=== PATIENT | female | born 1945 | race Caucasian/White ===

== ENCOUNTER 2016-05-22 12:47 | Emergency (ER) | payer MEDICARE ==
[2016-05-22] MEDS ORDERED: DEXAMETHASONE 10 MG/ML VIAL PO STA (15:33)
[2016-05-22] MEDS ORDERED: ONDANSETRON ODT 4 MG TABLET TL STA (15:33)
[2016-05-22] MEDS ORDERED: ALBUTEROL NEB 2.5 MG/3 ML INH STA (15:33)
[2016-05-22] MEDS ORDERED: ACETAMINOPHEN 325 MG TABLET PO STA (15:33)
[2016-05-22] MEDS ORDERED: ACETAMINOPHEN 325 MG TABLET PO ONE (15:50)
[2016-05-22] MEDS ORDERED: ONDANSETRON ODT 4 MG TABLET ONE (15:50)
[2016-05-22] MEDS ORDERED: DEXAMETHASONE 10 MG/ML VIAL ONE (15:50)
[2016-05-22] MEDS ORDERED: ALBUTEROL NEB 2.5 MG/3 ML INH ONE (16:02)
== END 2016-05-22 16:58 | disposition home or self-care (01) ==
DX: J10.1 Influenza due to other identified influenza virus with other respiratory manifestations (principal); J45.909 Unspecified asthma, uncomplicated; I10 Essential (primary) hypertension
CPT/HCPCS: 87275; 87276; 94640; 99282; 99283; A9270; J7613; Q0162

== ENCOUNTER 2016-05-29 11:14 | Outpatient (CLI) | payer MEDICARE | END 2016-05-29 11:15 | disposition home or self-care (01) | DX: R05 Cough (principal) ==

== ENCOUNTER 2017-01-13 19:57 | Outpatient (CLI) | payer MEDICARE | END 2017-01-13 19:58 | disposition home or self-care (01) | LOC: LAB.R 19:57 | PROVIDERS: ATTEND Family Medicine | DX: N39.0 Urinary tract infection, site not specified (principal) | CPT/HCPCS: 87086 ==

== ENCOUNTER 2017-06-12 12:24 | Emergency (ER) | payer MEDICARE ==
[2017-06-12 12:31] VITALS: BP 139/68
--- NOTE | 2017-06-12 12:53 | ED Physician Documentation ---
PD HPI URI - Stated complaint Stated Complaint: THROAT PX/RASH/FEVER - Chief complaint Chief Complaint: Heent - History obtained from History obtained from: Patient - History of Present Illness Timing - onset: How many days ago (4) Timing duration: Days (4) Timing details: Gradual onset, Still present Associated symptoms: Chills, Sore throat, Other (started with diffuse rash last night and worse today). No: Ear pain, Nasal congestion, Dry cough, Chest pain, NVD Contributing factors: No: Sick contact, Travel, Immunocompromised Improves by: No: Medication Worsened by: Other (swallowing) Similar symptoms before: Has not had sx before Recently seen: Not recently seen Review of Systems Constitutional: reports: Fever (subjective), Chills, Myalgias Ears: denies: Ear pain Nose: denies: Rhinorrhea / runny nose, Congestion Throat: reports: Sore throat. 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 - Present Medications Home Medications: Ambulatory Orders Medication Instructions Recorded Confirmed Atenolol 25 mg PO DAILY 04/29/14 04/29/14 Saccharomyces Boulardii [Florastor] 500 mg PO BIDWM #30 capsule 04/29/14 metroNIDAZOLE [Flagyl] 500 mg PO BID 28 Days tablet 04/29/14 Albuterol Sulfate [Proair Hfa 2 puffs IH QID #1 hfa.aer.ad 05/22/16 Inhaler] Dexamethasone [Decadron] 4 mg PO DAILY #5 tablet 05/22/16 Ondansetron Odt [Zofran] 4 mg TL Q6H PRN #15 tablet 05/22/16 guaiFENesin/CODEINE [Robitussin AC] 10 ml PO Q6H PRN #240 ml 05/22/16 Cephalexin [Keflex] 500 mg PO QID #24 capsule 06/12/17 Dexamethasone [Decadron] 4 mg PO DAILY #5 tablet 06/12/17 Saccharomyces Boulardii [Florastor] 250 mg PO BID #14 capsule 06/12/17 - Allergies Allergies/Adverse Reactions: Allergies Allergy/AdvReac Type Severity Reaction Status Date / Time Penicillins Allergy Unknown Verified 06/12/17 12:31 - Social History Does the pt smoke?: No Smoking Status: Never smoker Does the pt drink ETOH?: Yes Does the pt have substance abuse?: No - Immunizations Immunizations are current?: Yes - POLST Patient has POLST: No PD ED PE NORMAL - Vitals Vital signs reviewed: Yes - General General: Alert and oriented X 3, No acute distress, Well developed/nourished, Other (she does not appear ill/septic. ) - HEENT HEENT: Ears normal, Moist mucous membranes. No: Pharynx benign (redness with some spotty exudates posteriorly, anterior adenopathy noted. ) - Neck Neck: Supple, no meningeal sign - Cardiac Cardiac: RRR, No murmur - Respiratory Respiratory: Clear bilaterally - Abdomen Abdomen: Soft, Non tender - Back Back: No CVA TTP - Derm Derm: Normal color, Warm and dry, Other (diffuse maculopapular rash, mostly on trunk, not on palms. No oral ulcerations per se. No petechiae nor purpura. ) - Extremities Extremities: No tenderness to palpate, Normal ROM s pain - Neuro Neuro: Alert and oriented X 3, No motor deficit, Normal speech Results - Vitals Vitals: Oxygen O2 Source Room air - Labs Labs: Laboratory Tests 06/12/17 13:35 Group A Strep Rapid Negative PD MEDICAL DECISION MAKING - ED course Complexity details: considered differential (throat exam and concurrent rash suspicious for strep, though viral causes as well. Will empirically treat pending culture with high clinical suspicion. ), d/w patient Departure - Departure Disposition: 01 Home, Self Care Clinical Impression: Maculopapular rash, generalized Pharyngitis Qualifiers: Pharyngitis/tonsillitis etiology: unspecified etiology Qualified Code(s): J02.9 - Acute pharyngitis, unspecified Condition: Stable Record reviewed to determine appropriate education?: Yes Instructions: ED Strep Pharyngitis Poss Follow-Up: Eulalia Vazquez ARNP [Primary Care Provider] - Prescriptions: Cephalexin [Keflex] 500 mg PO QID #24 capsule Dexamethasone [Decadron] 4 mg PO DAILY #5 tablet Saccharomyces Boulardii [Florastor] 250 mg PO BID #14 capsule Comments: Drink lots of fluids. Cephalexin as directed for likely bacterial pharyngitis. The culture result is still pending but we will treated empirically. The rashes come in concurrence with both viral and strep infections. It does not look like a dangerous rash. Use Tylenol or ibuprofen if needed for fevers or pains. Decadron daily for 5 more days as a steroid to decrease the inflammation and decrease the rash as well. Recheck if not improving over the next few days. Discharge Date/Time: 06/12/17 13:57
[2017-06-12] MEDS ORDERED: cephALEXin 250 MG CAPSULE PO STA (13:36)
[2017-06-12] MEDS ORDERED: DEXAMETHASONE 10 MG/ML VIAL PO STA (13:36)
== END 2017-06-12 13:57 | disposition home or self-care (01) ==
LOC: ED 12:24
DX: R92.1 Mammographic calcification found on diagnostic imaging of breast (principal); J02.9 Acute pharyngitis, unspecified; I10 Essential (primary) hypertension
CPT/HCPCS: 87070; 87430; 99283; A9270

== ENCOUNTER 2017-11-25 16:34 | Outpatient (CLI) | payer MEDICARE ==
[2017-11-25 15:29] LABS: BILIRUBIN,URINE NEGATIVE (NEGATIVE); GLUCOSE, URINE (UA) NEGATIVE (NEGATIVE); KETONES,URINE (UA) NEGATIVE (NEGATIVE); LEUKOCYTE ESTERASE, URINE NEGATIVE (NEGATIVE); NITRITE,URINE NEGATIVE (NEGATIVE); OCCULT BLOOD,URINE NEGATIVE (NEGATIVE); PROTEIN,URINE NEGATIVE (NEGATIVE); UROBILINOGEN,URINE 0.2 (NORMAL) E.U./dL (NORMAL)
[2017-11-25 15:31] LABS: CLARITY,URINE CLEAR (CLEAR)
[2017-11-25 16:09] LABS: BACTERIA,URINE None Seen /HPF (None Seen); CRYSTALS,URINE 3-5 Calcium Oxalate /LPF; RBC,URINE None Seen /HPF (0-5); SQUAMOUS EPITHELIAL CELL,UR RARE Squamous (<= Few)
== END 2017-11-25 23:59 ==
LOC: LAB.R 16:34
PROVIDERS: ATTEND Nurse Practitioner Family
DX: N39.0 Urinary tract infection, site not specified (principal)
CPT/HCPCS: 81001; 87086

== ENCOUNTER 2017-12-04 10:37 | Outpatient (CLI) | payer MEDICARE ==
[2017-12-04 18:09] LABS: BASOPHILS # (AUTO) 0.1 10^3/uL (0.0-0.1); BASOPHILS % (AUTO) 0.9 %; EOSINOPHILS # (AUTO) 0.2 10^3/uL (0.0-0.7); EOSINOPHILS % (AUTO) 3.6 %; HGB - HEMOGLOBIN 13.8 g/dL (12.0-16.0); LYMPHOCYTES # (AUTO) 1.6 10^3/uL (1.5-3.5); LYMPHOCYTES % (AUTO) 28.3 %; MEAN CORPUSCULAR HEMOGLOBIN 30.1 pg (27.0-31.0); MEAN CORPUSCULAR HGB CONC 33.6 g/dL (32.0-36.0); MEAN CORPUSCULAR VOLUME 89.5 fL (81.0-99.0); MEAN PLATELET VOLUME 8.8 fL (7.9-10.8); MONOCYTES # (AUTO) 0.4 10^3/uL (0.0-1.0); NEUTROPHILS # (AUTO) 3.3 10^3/uL (1.5-6.6); NEUTROPHILS % (AUTO) 59.2 %; PLT - PLATELET COUNT 238 10^3/uL (130-450); RED CELL DISTRIBUTION WIDTH 13.6 % (12.0-15.0); WHITE BLOOD COUNT 5.6 x10^3/uL (4.8-10.8)
[2017-12-04 20:03] LABS: ALBUMIN 3.9 g/dL (3.2-5.5); ALBUMIN/GLOBULIN RATIO 1.3 (1.0-2.2); ALKALINE PHOSPHATASE 54 IU/L (42-121); ALT ALANINE AMINOTRANSFERASE 17 IU/L (10-60); AST ASPARTATE AMINOTRANSFERASE 17 IU/L (10-42); BILIRUBIN,TOTAL 0.9 mg/dL (0.2-1.0); BUN - BLOOD UREA NITROGEN 15 mg/dL (6-20); CALCIUM 9.2 mg/dL (8.5-10.3); CARBON DIOXIDE - CO2 28 mmol/L (21-32); CHLORIDE 104 mmol/L (101-111); CHOL/HDL RATIO 5.5 (<4.4); CHOLESTEROL 240 mg/dL; CREATININE 0.6 mg/dL (0.4-1.0); GFR - MDRD 99 (>89); GLUCOSE 100 mg/dL (70-100); HDL CHOLESTEROL 44 mg/dL; LDL CHOLESTEROL,CALCULATED 162 mg/dL; LDL/HDL RATIO 3.7 (<4.4); SODIUM 140 mmol/L (135-145); TOTAL PROTEIN 6.8 g/dL (6.7-8.2); VLDL CHOLESTEROL 34 mg/dL
== END 2017-12-04 10:38 | disposition home or self-care (01) ==
LOC: LAB.F 10:37
PROVIDERS: ATTEND Nurse Practitioner Family
DX: I10 Essential (primary) hypertension (principal); R53.83 Other fatigue; E78.5 Hyperlipidemia, unspecified
CPT/HCPCS: 36415; 80053; 80061; 83721; 85025

== ENCOUNTER 2017-12-18 08:47 | Outpatient (CLI) | payer MEDICARE ==
--- NOTE | 2017-12-18 13:14 | CARDIAC PROCEDURE NOTE ---
DATE OF SERVICE: 12/18/2017 Physician: ZAHRA Chambers PRIMARY CARE PROVIDER: ZAHRA Chambers. PROCEDURE: Exercise tolerance test. SYMPTOMS: Fatigue, Atypical chest pain. CARDIAC RISK FACTORS: Age, Hypertension, Hyperlipidemia. No prior cardiac procedures. CLINICAL HISTORY: A 72-year-old female without known coronary artery disease. She has held atenolol over the last 24 hours. She denies any symptoms of illness today. PHYSICAL EXAMINATION VITAL SIGNS: Blood pressure 176/84, heart rate 67, height 66 inches, weight 152 pounds, BMI 24.53. PROCEDURE AND FINDINGS: Patient's identity, date were verified and consent signed. Patient performed treadmill exercise using a Tiburcio protocol, completing 4 minutes, 34 seconds and a workload of 6.52 metabolic equivalents. Maximal blood pressure was 218/102 with a heart rate of 143 or 95% maximal heart rate for age. Blood pressure's were hypertensive. The patient stopped because she felt lightheaded. The resting ECG demonstrated normal sinus rhythm with no abnormality. Maximal ST segment depression was less than 0.5 mm and upsloping. She had occasional PACs. FINAL IMPRESSIONS 1. No electrocardiographic evidence of ischemia. 2. No angina during the stress procedure. 3. Occasional PAC ectopy. 4. Achieved (sedentary) predicted exercise time. TD: 12/18/2017 10:28 MTDD
[2017-12-18 16:21] VITALS: BP 176/81
== END 2017-12-18 08:48 | disposition home or self-care (01) ==
LOC: DI 08:47
PROVIDERS: ATTEND Nurse Practitioner Family
DX: R07.89 Other chest pain (principal); R53.83 Other fatigue

== ENCOUNTER 2019-03-11 11:41 | Outpatient (CLI) | payer MEDICARE | END 2019-03-11 23:59 | disposition home or self-care (01) | LOC: LAB.R 11:41 | PROVIDERS: ATTEND Physician Assistant Medical | DX: N39.0 Urinary tract infection, site not specified (principal) | CPT/HCPCS: 87077; 87086 ==

== ENCOUNTER 2019-03-17 09:49 | Outpatient (CLI) | payer MEDICARE ==
[2019-03-17 17:52] LABS: BASOPHILS # (AUTO) 0.1 10^3/uL (0.0-0.1); BASOPHILS % (AUTO) 1.2 %; EOSINOPHILS # (AUTO) 0.3 10^3/uL (0.0-0.7); EOSINOPHILS % (AUTO) 4.4 %; HGB - HEMOGLOBIN 14.1 g/dL (12.0-16.0); LYMPHOCYTES # (AUTO) 1.8 10^3/uL (1.5-3.5); LYMPHOCYTES % (AUTO) 26.6 %; MEAN CORPUSCULAR HEMOGLOBIN 29.6 pg (27.0-31.0); MEAN CORPUSCULAR VOLUME 92.5 fL (81.0-99.0); MEAN PLATELET VOLUME 11.1 fL (7.9-10.8); MONOCYTES # (AUTO) 0.5 10^3/uL (0.0-1.0); MONOCYTES % (AUTO) 6.7 %; NEUTROPHILS # (AUTO) 4.1 10^3/uL (1.5-6.6); NEUTROPHILS % (AUTO) 60.7 %; PLT - PLATELET COUNT 251 10^3/uL (130-450); RED BLOOD COUNT 4.77 10^6/uL (4.20-5.40); RED CELL DISTRIBUTION WIDTH 12.7 % (12.0-15.0); WHITE BLOOD COUNT 6.8 x10^3/uL (4.8-10.8)
[2019-03-17 18:29] LABS: ALBUMIN 4.5 g/dL (3.2-5.5); ALBUMIN/GLOBULIN RATIO 1.6 (1.0-2.2); ALKALINE PHOSPHATASE 56 IU/L (42-121); ALT ALANINE AMINOTRANSFERASE 14 IU/L (10-60); AST ASPARTATE AMINOTRANSFERASE 17 IU/L (10-42); BILIRUBIN,TOTAL 0.6 mg/dL (0.2-1.0); BUN - BLOOD UREA NITROGEN 18 mg/dL (6-20); CHOL/HDL RATIO 5.7 (<4.4); CHOLESTEROL 286 mg/dL; CREATININE 0.5 mg/dL (0.4-1.0); GFR - MDRD 121 (>89); HDL CHOLESTEROL 50 mg/dL; LDL CHOLESTEROL,CALCULATED 202 mg/dL; TOTAL PROTEIN 7.4 g/dL (6.7-8.2); VLDL CHOLESTEROL 34 mg/dL
[2019-03-17 18:35] LABS: CALCIUM 9.7 mg/dL (8.5-10.3); CARBON DIOXIDE - CO2 29 mmol/L (21-32); CHLORIDE 102 mmol/L (101-111); GLUCOSE 111 mg/dL (70-100); SODIUM 140 mmol/L (135-145)
[2019-03-17 19:06] LABS: HEMOGLOBIN A1C 0.58 g/dL; HEMOGLOBIN A1C % 5.7 % (4.6-6.2)
== END 2019-03-17 09:50 | disposition home or self-care (01) ==
LOC: LAB.S 09:49
PROVIDERS: ATTEND Registered Nurse
DX: I10 Essential (primary) hypertension (principal); E78.5 Hyperlipidemia, unspecified; Z13.1 Encounter for screening for diabetes mellitus; Z13.29 Encounter for screening for other suspected endocrine disorder
CPT/HCPCS: 36415; 80053; 80061; 83036; 83721; 84443; 85025

== ENCOUNTER 2019-08-24 12:50 | Emergency (ER) | payer MEDICARE ==
--- NOTE | 2019-08-24 13:04 | ED Physician Documentation ---
History of Present Illness - Stated complaint Stated Complaint: SOA,CHEST TIGHTNESS - Chief complaint Chief Complaint: Cardiac - History obtained from History obtained from: Patient (74 yo F w/ pmh of htn and mild int't asthma presents with 1.5 weeks of chest tightness and shortness of breath. Sx are persistent but wax and wane in severity. Tend to be worse w/ activity such as walking and better when she sits down, but can occur at anytime. Denies chest pain, but describes as "tight" in the entire chest, no radiation. She has no associated fever, chills, cough or congestion, nausea, vomiting, or weakness. She has no headache, vision changes, or extremity weakness or paraesthesias. She is on prn albuterol which she has tried for these sx and experienced no relief. She is on 50mg of atenolol daily which she took today.) Review of Systems Constitutional: reports: Reviewed and negative Eyes: reports: Reviewed and negative Ears: reports: Reviewed and negative Throat: reports: Reviewed and negative Cardiac: reports: Chest pain / pressure. denies: Palpitations, Pedal edema, Calf pain Respiratory: reports: Dyspnea. denies: Cough, Hemoptysis, Wheezing GI: reports: Reviewed and negative : reports: Reviewed and negative Musculoskeletal: reports: Reviewed and negative Neurologic: reports: Reviewed and negative Psychiatric: reports: Reviewed and negative PD PAST MEDICAL HISTORY - Past Medical History Cardiovascular: Hypertension, High cholesterol Respiratory: Asthma, COPD Endocrine/Autoimmune: None - Past Surgical History Past Surgical History: Yes /PTA: section, 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 - Present Medications Home Medications: Ambulatory Orders Medication Instructions Recorded Confirmed Saccharomyces Boulardii [Florastor] 500 mg PO BIDWM #30 capsule 04/29/14 atenoloL [Atenolol] 25 mg PO DAILY 04/29/14 04/29/14 metroNIDAZOLE [Flagyl] 500 mg PO BID 28 Days tablet 04/29/14 Albuterol Sulfate [Proair Hfa 2 puffs IH QID #1 hfa.aer.ad 05/22/16 Inhaler] Ondansetron Odt [Zofran] 4 mg TL Q6H PRN #15 tablet 05/22/16 dexAMETHasone [Decadron] 4 mg PO DAILY #5 tablet 05/22/16 guaiFENesin/CODEINE [Robitussin AC] 10 ml PO Q6H PRN #240 ml 05/22/16 Cephalexin [Keflex] 500 mg PO QID #24 capsule 06/12/17 Saccharomyces Boulardii [Florastor] 250 mg PO BID #14 capsule 06/12/17 dexAMETHasone [Decadron] 4 mg PO DAILY #5 tablet 06/12/17 Lisinopril [Prinivil] 5 mg PO DAILY #15 tablet 08/24/19 - Allergies Allergies/Adverse Reactions: Allergies Allergy/AdvReac Type Severity Reaction Status Date / Time Penicillins Allergy Unknown Verified 08/24/19 13:06 - Social History Does the pt smoke?: No Smoking Status: Never smoker Does the pt drink ETOH?: Yes Does the pt have substance abuse?: No - Immunizations Immunizations are current?: Yes - POLST Patient has POLST: No PD ED PE NORMAL - General General: Alert and oriented X 3, No acute distress, Well developed/nourished - HEENT HEENT: Atraumatic, PERRL, EOMI - Neck Neck: Supple, no meningeal sign - Cardiac Cardiac: RRR, No murmur, No gallop, No rub, Strong equal pulses - Respiratory Respiratory: No respiratory distress, Clear bilaterally - Abdomen Abdomen: Normal bowel sounds, Soft, Non tender, Non distended, No organomegaly - Derm Derm: Normal color, Warm and dry - Extremities Extremities: No deformity, No tenderness to palpate, Normal ROM s pain, No edema, No calf tenderness / cord - Neuro Neuro: Alert and oriented X 3, No motor deficit, No sensory deficit, Normal speech Eye Opening: Spontaneous Motor: Obeys Commands Verbal: Oriented GCS Score: 15 - Psych Psych: Normal mood, Normal affect Results - Vitals Vitals: Vital Signs - 24 hr 08/24/19 08/24/19 08/24/19 13:06 13:35 13:56 Temperature 36.9 C Heart Rate 78 76 Respiratory 16 Rate Blood Pressure 238/123 H 200/91 H 200/91 H O2 Saturation 95 08/24/19 08/24/19 15:00 15:14 Temperature Heart Rate 59 L 68 Respiratory 15 Rate Blood Pressure 145/78 H 145/78 H O2 Saturation 98 97 Oxygen O2 Source Room air - Labs Labs: Laboratory Tests 04/07/20 04/07/20 04/07/20 13:20 13:20 13:48 WBC 7.0 RBC 4.93 Hgb 14.6 Hct 44.3 MCV 89.9 MCH 29.6 MCHC 33.0 RDW 12.6 Plt Count 261 MPV 10.3 Neut # (Auto) 4.4 Lymph # (Auto) 1.8 [place] # (Auto) 0.6 Eos # (Auto) 0.2 Baso # (Auto) 0.1 Absolute Nucleated RBC 0.00 Nucleated RBC % 0.0 Sodium 136 Potassium 3.7 Chloride 104 Carbon Dioxide 27 Anion Gap 5.0 L BUN 20 Creatinine 0.6 Estimated GFR (MDRD) 98 Glucose 100 Calcium 9.2 Total Bilirubin 0.5 AST 17 ALT 14 Alkaline Phosphatase 50 Troponin I High Sens 2.9 Total Protein 6.6 L Albumin 4.0 Globulin 2.6 Albumin/Globulin Ratio 1.5 Lipase 35 PD MEDICAL DECISION MAKING - ED course Complexity details: reviewed results, re-evaluated patient, considered differential, d/w patient ED course: 74 yo F presented with 1.5 weeks of chest heaviness. Her EKG was nsr w/o acute st changes and her troponin was negative. Her chest xray was reassuring. She had no hypoxia to suggest pe or pulmonary source. She had severe htn on arrival and on subsequent repeat BPs, therefore 0.1mg of clonidine was given. Her pressure slowly improved while in the ED and pt sx resolved completed. Pt reporting she feels "much better." I suspect sx 2/2 to poorly controlled htn as they resolved quickly w/ resolution of severe hypertension. As pt will not be able to get an immediate ER fup to begin antihypertensives, I have started her on low dose lisinopril (5mg daily) and she is to continue her atenolol. She is to have a "nurse visit" BP check as soon as she is able to this week and have a phone or in person follow up with PCP if possible this week. Pt advised to return to the ER if sx recur or she has headache, vision changes, dizziness, chest pain, or other worsening sx. Pt voices understanding. Departure - Departure Disposition: 01 Home, Self Care Clinical Impression: Atypical chest pain, Uncontrolled hypertension Condition: Good Instructions: ED Chest Pain NonCardiac Prescriptions: Lisinopril [Prinivil] 5 mg PO DAILY #15 tablet Comments: Please follow up Discharge Date/Time: 08/24/19 15:31
[2019-08-24] MEDS ORDERED: cloNIDine 0.1 MG TABLET PO STA (13:18)
--- NOTE | 2019-08-24 13:26 | XRAY Report ---
Reason: Chest Pain Procedure Date: 08/24/2019 Accession Number: [id number] / [id number] Procedure: XR - Chest 1 View X-Ray CPT Code: 56104 Final Report FULL RESULT: EXAM: CHEST RADIOGRAPHY EXAM DATE: 08/24/2019 01:17 PM. CLINICAL HISTORY: Chest Pain. COMPARISON: CHEST 2 VIEW PA/LAT 05/29/2016 11:32 AM. TECHNIQUE: 1 view. FINDINGS: Lungs/Pleura: No focal opacities evident. No pleural effusion. No pneumothorax. Mediastinum: Within exam limitations, the cardiomediastinal contour is normal. Other: None. IMPRESSION: Normal single view chest. RADIA
[2019-08-24 13:32] LABS: BASOPHILS # (AUTO) 0.1 10^3/uL (0.0-0.1); BASOPHILS % (AUTO) 1.1 %; EOSINOPHILS # (AUTO) 0.2 10^3/uL (0.0-0.7); HGB - HEMOGLOBIN 14.6 g/dL (12.0-16.0); LYMPHOCYTES # (AUTO) 1.8 10^3/uL (1.5-3.5); LYMPHOCYTES % (AUTO) 25.1 %; MEAN CORPUSCULAR HEMOGLOBIN 29.6 pg (27.0-31.0); MEAN CORPUSCULAR VOLUME 89.9 fL (81.0-99.0); MEAN PLATELET VOLUME 10.3 fL (7.9-10.8); MONOCYTES # (AUTO) 0.6 10^3/uL (0.0-1.0); MONOCYTES % (AUTO) 8.1 %; NEUTROPHILS # (AUTO) 4.4 10^3/uL (1.5-6.6); NEUTROPHILS % (AUTO) 62.4 %; PLT - PLATELET COUNT 261 10^3/uL (130-450); RED BLOOD COUNT 4.93 10^6/uL (4.20-5.40); RED CELL DISTRIBUTION WIDTH 12.6 % (12.0-15.0)
[2019-08-24 14:38] LABS: ALBUMIN/GLOBULIN RATIO 1.5 (1.0-2.2); BILIRUBIN,TOTAL 0.5 mg/dL (0.2-1.0); CALCIUM 9.2 mg/dL (8.5-10.3); CREATININE 0.6 mg/dL (0.4-1.0); TOTAL PROTEIN 6.6 g/dL (6.7-8.2)
[2019-08-24 15:06] VITALS: BP 145/78
== END 2019-08-24 15:31 | disposition home or self-care (01) ==
LOC: ED 12:50
DX: R07.89 Other chest pain (principal); I10 Essential (primary) hypertension
CPT/HCPCS: 36415; 71045; 80053; 83690; 84484; 85025; 93005; 99284; A9270

== ENCOUNTER 2019-08-26 04:00 | Emergency (ER) | payer MEDICARE ==
--- NOTE | 2019-08-26 04:05 | ED Physician Documentation ---
History of Present Illness - Stated complaint Stated Complaint: CONGESTION - History obtained from History obtained from: Patient (The patient is a 74-year-old female presents here with her adult daughter who also is being checked in to be evaluated. the patient presents with a chief complaint of thinking that she could possibly have covid 19.The patient was seen here 1 day ago. she had lab work that include an unremarkable CBC and unremarkable abdominal panel unremarkable EKG unremarkable troponin and unremarkable chest x-ray tonight she has been feeling like she has burning when she takes a deep breath and feels like she has a dry cough she denies fevers, headache, neck pain, shortness of breath she is currently being treated for chronic hypertension with atenolol and lisinopril. She denies any lower extremity swelling denies any recent travel outside the country reports she is up-to-date on all of her immunizations denies any history of pulmonary embolism or DVT she reports she had a negative stress test less than 1 year ago.The patient reports that she also has chronic hypertension for which she is taking atenolol and lisinopril she denies any chest pain currently denies syncope denies headache denies hearing or visual loss denies any lower extremity swelling. Denies any facial droop or unilateral weakness or difficulty speaking.) Review of Systems Constitutional: reports: Reviewed and negative Eyes: reports: Reviewed and negative Ears: reports: Reviewed and negative Nose: reports: Reviewed and negative Throat: reports: Reviewed and negative Cardiac: reports: Reviewed and negative Respiratory: reports: Dyspnea GI: reports: Reviewed and negative : reports: Reviewed and negative Skin: reports: Reviewed and negative Musculoskeletal: reports: Reviewed and negative Neurologic: reports: Reviewed and negative Psychiatric: reports: Reviewed and negative Endocrine: reports: Reviewed and negative Immunocompromised: reports: Reviewed and negative PD PAST MEDICAL HISTORY - Past Medical History Cardiovascular: Hypertension, High cholesterol Respiratory: Asthma, COPD Endocrine/Autoimmune: None - Past Surgical History 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, 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 - Present Medications Home Medications: Ambulatory Orders Medication Instructions Recorded Confirmed Saccharomyces Boulardii [Florastor] 500 mg PO BIDWM #30 capsule 04/29/14 atenoloL [Atenolol] 25 mg PO DAILY 04/29/14 04/29/14 metroNIDAZOLE [Flagyl] 500 mg PO BID 28 Days tablet 04/29/14 Albuterol Sulfate [Proair Hfa 2 puffs IH QID #1 hfa.aer.ad 05/22/16 Inhaler] Ondansetron Odt [Zofran] 4 mg TL Q6H PRN #15 tablet 05/22/16 dexAMETHasone [Decadron] 4 mg PO DAILY #5 tablet 05/22/16 guaiFENesin/CODEINE [Robitussin AC] 10 ml PO Q6H PRN #240 ml 05/22/16 Cephalexin [Keflex] 500 mg PO QID #24 capsule 06/12/17 Saccharomyces Boulardii [Florastor] 250 mg PO BID #14 capsule 06/12/17 dexAMETHasone [Decadron] 4 mg PO DAILY #5 tablet 06/12/17 Lisinopril [Prinivil] 5 mg PO DAILY #15 tablet 08/24/19 - Allergies Allergies/Adverse Reactions: Allergies Allergy/AdvReac Type Severity Reaction Status Date / Time Penicillins Allergy Unknown Verified 08/24/19 13:06 - Social History Does the pt smoke?: No Smoking Status: Never smoker Does the pt drink ETOH?: Yes Does the pt have substance abuse?: No - Immunizations Immunizations are current?: Yes - POLST Patient has POLST: No PD ED PE NORMAL - Vitals Vital signs reviewed: Yes - General General: Alert and oriented X 3, No acute distress, Well developed/nourished, Other - HEENT HEENT: Atraumatic, PERRL, Moist mucous membranes, Pharynx benign - Neck Neck: Supple, no meningeal sign, No bony TTP, No JVD - Cardiac Cardiac: RRR, No murmur, Strong equal pulses - Respiratory Respiratory: No respiratory distress, Clear bilaterally - Abdomen Abdomen: Normal bowel sounds, Soft, Non tender, Non distended, No organomegaly - Back Back: No CVA TTP, No spinal TTP - Derm Derm: Normal color, Warm and dry, No rash - Extremities Extremities: No deformity, No tenderness to palpate, Normal ROM s pain, No edema, No calf tenderness / cord - Neuro Neuro: Alert and oriented X 3, 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 However this patient is also appears to be anxious she is very concerned that she can have covid 19.The patient reports that she had a negative stress testRepeat blood work to include CBC, 1 year ago I did recommend that we BMP, LFTs, lipase, continuous manager business continuity, chest x-ray, troponin, the patient's refusing she did allow us to do a EKG that shows no signs of a STEMI.The patient is refusing any additional testing she does have medical decision-making capability and capacity and assumes all risk for any adverse outcome such as cardiac or respiratory arrest or permanent disability.) Departure - Departure Disposition: 01 Home, Self Care Clinical Impression: Dyspnea Qualifiers: Dyspnea type: unspecified Qualified Code(s): R06.00 - Dyspnea, unspecified Hypertension Qualifiers: Hypertension type: unspecified Qualified Code(s): I10 - Essential (primary) hypertension Condition: Stable Instructions: Hypertension Dc, ED Dyspnea Shortness of Breath Follow-Up: Leeanne Gleason ARNP [Primary Care Provider] - 08/26/19 Discharge Date/Time: 08/26/19 04:52
[2019-08-26 04:16] VITALS: BP 196/98
== END 2019-08-26 04:52 | disposition home or self-care (01) ==
LOC: ED 04:00
DX: R06.00 Dyspnea, unspecified (principal); I10 Essential (primary) hypertension
CPT/HCPCS: 93005; 99283; 99285

== ENCOUNTER 2019-10-11 13:20 | Outpatient (CLI) | payer MEDICARE ==
[~2019-10-11 13:20] MED LIST: ALBUTEROL 1 PUFF INH STA
== END 2019-10-11 13:21 | disposition home or self-care (01) ==
LOC: RT 13:20
PROVIDERS: ATTEND Nurse Practitioner
DX: R07.89 Other chest pain (principal); R06.00 Dyspnea, unspecified
CPT/HCPCS: 94060; 94729

== ENCOUNTER 2020-02-29 07:00 | Outpatient (CLI) | payer MEDICARE | END 2020-02-29 23:59 | disposition home or self-care (01) | LOC: LAB.R 07:00 | PROVIDERS: ATTEND Physician Assistant Medical | DX: N30.90 Cystitis, unspecified without hematuria (principal); R30.0 Dysuria | CPT/HCPCS: 87077; 87086; 87181 ==

== ENCOUNTER 2020-09-11 11:20 | Emergency (ER) | payer MEDICARE ==
--- NOTE | 2020-09-11 11:47 | ED Physician Documentation ---
PD HPI CHEST PAIN - Stated complaint Stated Complaint: CHEST PX - Chief complaint Chief Complaint: Cardiac - History obtained from History obtained from: Patient - History of Present Illness Timing - onset: How many hours ago (1), Today Timing - onset during: Light activity Timing - duration: Hours (1) Timing - details: Abrupt onset, Still present (lessening but still present) Quality: Aching, Sharp, Pain Location: Substernal Radiation: Other (feeling some numbness but no weakness in both shoulders.). No: Neck, Back Improved by: No: Rest Worsened by: No: Inspiration, Movement Associated symptoms: Shortness of air, Feeling faint / dizzy. No: Diaphoresis, Nausea, Palpitations Similar symptoms before: No diagnosis (He has had episodes of chest pain intermittently for a few years. She had had a prior stress test in 2018 that was normal. No consistent pattern to the episodes. Last month or so she has had more consistent exertional pain (sometimes at rest) and today markedly worse with just grocery shopping.), Other (She has felt that some episodes of dyspnea with chest tightness have been asthma episodes in the past, with activity.) Recently seen: Not recently seen Review of Systems Constitutional: denies: Fever, Chills Nose: denies: Rhinorrhea / runny nose Throat: denies: Sore throat Cardiac: reports: Chest pain / pressure. denies: Palpitations, Pedal edema, Calf pain Respiratory: reports: Dyspnea (at times, and has presumed her chest pain and dyspnea episodes in the past have been asthma.), Wheezing. 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 - Present Medications Home Medications: Ambulatory Orders Medication Instructions Recorded Confirmed Albuterol Sulfate [Proair Hfa 2 puffs IH QID #1 hfa.aer.ad 05/22/16 09/11/20 Inhaler] Losartan [Cozaar] 1 tab PO DAILY 09/11/20 09/11/20 - Allergies Allergies/Adverse Reactions: Allergies Allergy/AdvReac Type Severity Reaction Status Date / Time Cephalosporins Allergy Unknown Verified 09/11/20 11:35 latex Allergy Unknown Verified 09/11/20 11:35 nitrofurantoin Allergy Unknown Verified 09/11/20 11:35 [From Macrobid] Penicillins Allergy Unknown Verified 09/11/20 11:35 Sulfa (Sulfonamide Allergy Unknown Verified 09/11/20 11:35 Antibiotics) sulfamethoxazole Allergy Unknown Verified 09/11/20 11:35 [From Septra] trimethoprim [From ] Allergy Unknown Verified 09/11/20 11:35 - Social History Does the pt smoke?: No Smoking Status: Never smoker Does the pt drink ETOH?: Yes Does the pt have substance abuse?: No - Immunizations Immunizations are current?: Yes - POLST Patient has POLST: No PD ED PE NORMAL - Vitals Vital signs reviewed: Yes - General General: Alert and oriented X 3, Well developed/nourished, Other (seems comfortable, but slightly anxious. ) - HEENT HEENT: Moist mucous membranes, Pharynx benign - Neck Neck: Supple, no meningeal sign, No adenopathy - Cardiac Cardiac: RRR, No murmur - Respiratory Respiratory: Other (minimal scattered expiratory wheezes. There is focal chestwall tenderness left sternal border lower, without crepitance, rash, nor sores. ) - Abdomen Abdomen: Normal bowel sounds, Soft, Non tender, No organomegaly - Female Female : Deferred - Rectal Rectal: Deferred - Back Back: No CVA TTP - Derm Derm: Normal color, Warm and dry - Extremities Extremities: No tenderness to palpate, No edema, No calf tenderness / cord - Neuro Neuro: Alert and oriented X 3, No motor deficit, Normal speech Eye Opening: Spontaneous Motor: Obeys Commands Verbal: Oriented GCS Score: 15 - Psych Psych: Normal mood. No: Normal affect (somewhat anxious) Results - Vitals Vitals: Vital Signs - 24 hr 09/11/20 09/11/20 09/11/20 11:31 12:07 12:26 Temperature 36.5 C Heart Rate 88 82 85 Respiratory 20 16 15 Rate Blood Pressure 195/133 H 183/109 H 171/93 H O2 Saturation 100 100 99 09/11/20 09/11/20 09/11/20 12:29 12:30 13:00 Temperature Heart Rate 101 H 112 H 94 Respiratory 14 13 12 Rate Blood Pressure 145/106 H 165/119 H 167/106 H O2 Saturation 97 96 98 09/11/20 09/11/20 09/11/20 13:06 13:34 13:54 Temperature Heart Rate 92 93 96 Respiratory 16 18 Rate Blood Pressure 157/102 H 166/104 H O2 Saturation 99 99 09/11/20 14:10 Temperature Heart Rate 102 H Respiratory 15 Rate Blood Pressure 180/115 H O2 Saturation Oxygen O2 Source Room air - EKG (time done) 11:28 Rate: Rate (enter#) (92) Rhythm: NSR [place]: Normal Intervals: Normal SD QRS: Normal Ischemia: Normal ST segments. No: ST elevation c/w ischemia, ST depression Compare to prior EKG: Unchanged from prior EKG (08/26/19) - Labs Labs: Laboratory Tests 09/11/20 09/11/20 09/11/20 11:35 11:35 11:35 WBC 6.9 RBC 5.16 Hgb 15.4 Hct 46.4 MCV 89.9 MCH 29.8 MCHC 33.2 RDW 12.6 Plt Count 265 MPV 10.2 Neut # (Auto) 4.2 Lymph # (Auto) 1.9 [place] # (Auto) 0.5 Eos # (Auto) 0.3 Baso # (Auto) 0.1 Absolute Nucleated RBC 0.00 Nucleated RBC % 0.0 D-Dimer Sodium 140 Potassium 3.6 Chloride 102 Carbon Dioxide 27 Anion Gap 11.0 BUN 17 Creatinine 0.5 Estimated GFR (MDRD) 121 Glucose 87 Calcium 9.8 Total Bilirubin 0.6 AST 23 ALT 21 Alkaline Phosphatase 64 Troponin I High Sens 127.4 H* B-Natriuretic Peptide Total Protein 7.9 Albumin 4.8 Globulin 3.1 Albumin/Globulin Ratio 1.5 Lipase 38 Nasal Adenovirus (PCR) Nasal B. parapertussis DNA (PCR) Nasal Coronavir 229E PCR Nasal Coronavir HKU1 PCR Nasal Coronavir NL63 PCR Nasal Coronavir OC43 PCR Nasal Enterovir/Rhinovir PCR Nasal Influenza B PCR Nasal Influenza A PCR Nasal Parainfluen 1 PCR Nasal Parainfluen 2 PCR Nasal Parainfluen 3 PCR Nasal Parainfluen 4 PCR Nasal RSV (PCR) Nasal B.pertussis DNA PCR Nasal C.pneumoniae (PCR) Angel Human Metapneumo PCR Nasal M.pneumoniae (PCR) Nasal SARS-CoV-2 (PCR) 09/11/20 09/11/20 09/11/20 11:35 11:35 12:34 WBC RBC Hgb Hct MCV MCH MCHC RDW Plt Count MPV Neut # (Auto) Lymph # (Auto) [place] # (Auto) Eos # (Auto) Baso # (Auto) Absolute Nucleated RBC Nucleated RBC % D-Dimer < 200.0 L Sodium Potassium Chloride Carbon Dioxide Anion Gap BUN Creatinine Estimated GFR (MDRD) Glucose Calcium Total Bilirubin AST ALT Alkaline Phosphatase Troponin I High Sens B-Natriuretic Peptide 60 Total Protein Albumin Globulin Albumin/Globulin Ratio Lipase Nasal Adenovirus (PCR) NOT DETECTED Nasal B. parapertussis DNA (PCR) NOT DETECTED Nasal Coronavir 229E PCR NOT DETECTED Nasal Coronavir HKU1 PCR NOT DETECTED Nasal Coronavir NL63 PCR NOT DETECTED Nasal Coronavir OC43 PCR NOT DETECTED Nasal Enterovir/Rhinovir PCR NOT DETECTED Nasal Influenza B PCR NOT DETECTED Nasal Influenza A PCR NOT DETECTED Nasal Parainfluen 1 PCR NOT DETECTED Nasal Parainfluen 2 PCR NOT DETECTED Nasal Parainfluen 3 PCR NOT DETECTED Nasal Parainfluen 4 PCR NOT DETECTED Nasal RSV (PCR) NOT DETECTED Nasal B.pertussis DNA PCR NOT DETECTED Nasal C.pneumoniae (PCR) NOT DETECTED Angel Human Metapneumo PCR NOT DETECTED Nasal M.pneumoniae (PCR) NOT DETECTED Nasal SARS-CoV-2 (PCR) NOT DETECTED 09/11/20 13:31 WBC RBC Hgb Hct MCV MCH MCHC RDW Plt Count MPV Neut # (Auto) Lymph # (Auto) [place] # (Auto) Eos # (Auto) Baso # (Auto) Absolute Nucleated RBC Nucleated RBC % D-Dimer Sodium Potassium Chloride Carbon Dioxide Anion Gap BUN Creatinine Estimated GFR (MDRD) Glucose Calcium Total Bilirubin AST ALT Alkaline Phosphatase Troponin I High Sens 1132.8 H* B-Natriuretic Peptide Total Protein Albumin Globulin Albumin/Globulin Ratio Lipase Nasal Adenovirus (PCR) Nasal B. parapertussis DNA (PCR) Nasal Coronavir 229E PCR Nasal Coronavir HKU1 PCR Nasal Coronavir NL63 PCR Nasal Coronavir OC43 PCR Nasal Enterovir/Rhinovir PCR Nasal Influenza B PCR Nasal Influenza A PCR Nasal Parainfluen 1 PCR Nasal Parainfluen 2 PCR Nasal Parainfluen 3 PCR Nasal Parainfluen 4 PCR Nasal RSV (PCR) Nasal B.pertussis DNA PCR Nasal C.pneumoniae (PCR) Angel Human Metapneumo PCR Nasal M.pneumoniae (PCR) Nasal SARS-CoV-2 (PCR) - Rads (name of study) chest xray Radiology: Prelim report reviewed (no acute process), See rad report PD MEDICAL DECISION MAKING - ED course Complexity details: reviewed results (Reasonably elevated troponin 1 hour to 1- 1/2 hours after onset of symptoms. Rechecked an hour after that had showed tenfold increase suggesting acute UT process. 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 I talked with the hospitalist there who accepted transfer.) - Critical Care Time(min): 35 Time Includes: Direct patient care, Reassess patient, Document care, Coordinate care, Medical consult Data interpretation: Labs, CXR Procedures excluded from critical care time: EKG Departure - Departure Disposition: 02 Transfer Acute Care Hosp Clinical Impression: Non-STEMI (non-ST elevated myocardial infarction) Chest pain Qualifiers: Chest pain type: precordial pain Qualified Code(s): R07.2 - Precordial pain Condition: Stable
[2020-09-11 11:52] LABS: BASOPHILS # (AUTO) 0.1 10^3/uL (0.0-0.1); BASOPHILS % (AUTO) 0.7 %; EOSINOPHILS # (AUTO) 0.3 10^3/uL (0.0-0.7); EOSINOPHILS % (AUTO) 3.6 %; HCT - HEMATOCRIT 46.4 % (37.0-47.0); HGB - HEMOGLOBIN 15.4 g/dL (12.0-16.0); LYMPHOCYTES # (AUTO) 1.9 10^3/uL (1.5-3.5); MEAN CORPUSCULAR HEMOGLOBIN 29.8 pg (27.0-31.0); MEAN CORPUSCULAR HGB CONC 33.2 g/dL (32.0-36.0); MEAN CORPUSCULAR VOLUME 89.9 fL (81.0-99.0); MEAN PLATELET VOLUME 10.2 fL (7.9-10.8); MONOCYTES # (AUTO) 0.5 10^3/uL (0.0-1.0); MONOCYTES % (AUTO) 6.7 %; NEUTROPHILS # (AUTO) 4.2 10^3/uL (1.5-6.6); NEUTROPHILS % (AUTO) 61.7 %; PLT - PLATELET COUNT 265 10^3/uL (130-450); RED BLOOD COUNT 5.16 10^6/uL (4.20-5.40); RED CELL DISTRIBUTION WIDTH 12.6 % (12.0-15.0); WHITE BLOOD COUNT 6.9 x10^3/uL (4.8-10.8)
--- NOTE | 2020-09-11 11:57 | XRAY Report ---
PROCEDURE: Chest 1 View X-Ray INDICATIONS: Chest pain TECHNIQUE: One view of the chest was acquired. COMPARISON: Chest x-ray of 08/24/2019 FINDINGS: Surgical changes and devices: None. Lungs and pleura: No pleural effusions or pneumothorax. Lungs are clear. Lungs are hyperexpanded. Mediastinum: Mediastinal contours appear normal. Heart size is normal. Bones and chest wall: No suspicious bony lesions. Overlying soft tissues appear unremarkable. IMPRESSION: No acute pulmonary process. Reviewed by: Neli Akins MD on 09/11/2020 10:56 AM [facility] Approved by: Neli Akins MD on 09/11/2020 10:56 AM OCHO[facility] Station ID: [id number]
--- OUTSIDE RECORDS SUMMARY | 2020-09-11 12:08 | EXTERNAL MEDICAL SUMMARY RPT | Continuity of Care Document ---
:1945 Demographics Phone Unavailable Preferred Language Unknown Marital Status Unknown Temple Affiliation Unknown Race Unknown Ethnic Group Unknown Author Organization [place] Address [address] [place] [address] Phone Social History date description facility [id number]
[2020-09-11 12:09] LABS: ALBUMIN 4.8 g/dL (3.2-5.5); ALBUMIN/GLOBULIN RATIO 1.5 (1.0-2.2); BILIRUBIN,TOTAL 0.6 mg/dL (0.2-1.0); CALCIUM 9.8 mg/dL (8.5-10.3); CREATININE 0.5 mg/dL (0.4-1.0); POTASSIUM 3.6 mmol/L (3.5-5.0); TOTAL PROTEIN 7.9 g/dL (6.7-8.2)
[2020-09-11] MEDS ORDERED: KETOROLAC 30 MG/ML VIAL IVP STA (12:12)
[2020-09-11] MEDS ORDERED: ASPIRIN CHEW 81 MG TABLET PO STA (12:21)
[2020-09-11] MEDS: NITROGLYCERIN SL 0.4 MG TABLET SL STA ×2 (12:24→12:32)
[2020-09-11] MEDS ORDERED: CLOPIDOGREL 300 MG TABLET PO STA (13:20)
[2020-09-11] MEDS ORDERED: HEPARIN 25000UNITS/500ML (D5W) 25,000 UNIT/500 ML BAG IV SCH (14:00)
[2020-09-11 14:27] LABS: B. PARAPERTUSSIS- RESP PCR PAN NOT DETECTED; B. PERTUSSIS- RESP PCR PANEL NOT DETECTED; C. PNEUMONIAE- RESP PCR PANEL NOT DETECTED; CORONAVIRUS 229E-RESP PCR NOT DETECTED; CORONAVIRUS HKU1-RESP PCR NOT DETECTED; CORONAVIRUS NL63-RESP PCR NOT DETECTED; CORONAVIRUS OC43-RESP PCR NOT DETECTED; HUMAN METAPNEUMOVIRUS NOT DETECTED; INFLUENZA A- RESP PCR PANEL NOT DETECTED; INFLUENZA B - RESP PCR PANEL NOT DETECTED; M. PNEUMONIAE- RESP PCR PANEL NOT DETECTED; PARAINFLUENZA VIRUS 1 NOT DETECTED; PARAINFLUENZA VIRUS 2 NOT DETECTED; PARAINFLUENZA VIRUS 3 NOT DETECTED; PARAINFLUENZA VIRUS 4 NOT DETECTED; RHINOVIRUS/ENTEROVIRUS NOT DETECTED; RSV- RESP PCR PANEL NOT DETECTED; SARS-CoV-2 -RESP PCR PANEL NOT DETECTED
[2020-09-11] MEDS ORDERED: METOPROLOL 5 MG/5 ML VIAL IVP STA (14:32)
[2020-09-11] MEDS ORDERED: LOSARTAN 50 MG TABLET PO STA (14:32)
[2020-09-11 14:59] VITALS: BP 147/108
== END 2020-09-11 15:14 | disposition short-term general hospital (02) ==
LOC: ED 11:20
DX: I21.4 Non-ST elevation (NSTEMI) myocardial infarction (principal); J44.9 Chronic obstructive pulmonary disease, unspecified; I10 Essential (primary) hypertension; Z20.822 Contact with and (suspected) exposure to COVID-19
CPT/HCPCS: 36415; 71045; 80053; 83690; 83880; 84484; 85025; 85379; 87631; 93005; 96365; 96375; 96376; 99285; 99291; A9270; 0202U

== ENCOUNTER 2020-09-11 15:15 | Outpatient (CLI) | payer MEDICARE | END 2020-09-11 15:16 | disposition short-term general hospital (02) | LOC: EMS 15:15 | PROVIDERS: ATTEND Emergency Medicine | DX: I21.4 Non-ST elevation (NSTEMI) myocardial infarction (principal) | CPT/HCPCS: A0425; A0426 ==

== ENCOUNTER 2020-09-14 21:02 | Emergency (ER) | payer MEDICARE ==
--- OUTSIDE RECORDS SUMMARY | 2020-09-14 21:05 | EXTERNAL MEDICAL SUMMARY RPT | Continuity of Care Document ---
:1945 Demographics Phone Unavailable Preferred Language Unknown Marital Status Unknown Hindu Affiliation Unknown Race Unknown Ethnic Group Unknown Author Organization [place] Address [address] [phone] Phone Problems date description facility [id number] Precordial pain [facility] [id number] Non-ST elevation (NSTEMI) myocardial [facility] infarction Social History date description facility [id number]
--- OUTSIDE RECORDS SUMMARY | 2020-09-14 21:10 | EXTERNAL MEDICAL SUMMARY RPT | Continuity of Care Document ---
:1945 Demographics Phone Unavailable Preferred Language Unknown Marital Status Unknown Jewish Affiliation Unknown Race Unknown Ethnic Group Unknown Author Organization [place] Address [address] [place] [address] Phone Problems date description facility [id number] Precordial pain [facility] [id number] Non-ST elevation (NSTEMI) myocardial [facility] infarction Social History date description facility [phone]
[2020-09-14] MEDS ORDERED: NITROGLYCERIN SL 0.4 MG TABLET SL STA (21:14)
[2020-09-14 21:51] VITALS: BP 140/84
--- NOTE | 2020-09-14 22:12 | ED Physician Documentation ---
History of Present Illness - Stated complaint Stated Complaint: CP - Chief complaint Chief Complaint: Cardiac - History obtained from History obtained from: Patient - Additonal information Additional information: 75-year-old woman with history of NM status post stents at [facility] 3 days prior presents with chest pain while trying to fill her nitro prescription at her local pharmacy. She was unable to get her nitro because they said that they ran out and it upset her and she experienced chest pain at that time. She came into the emergency department and was given nitro here with resolution of symptoms. Review of Systems Ten Systems: 10 systems reviewed and negative Constitutional: denies: Fever, Chills Cardiac: reports: Chest pain / pressure. 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 - Present Medications Home Medications: Ambulatory Orders Medication Instructions Recorded Confirmed Albuterol Sulfate [Proair Hfa 2 puffs IH QID #1 hfa.aer.ad 05/22/16 09/11/20 Inhaler] Losartan [Cozaar] 1 tab PO DAILY 09/11/20 09/11/20 - Allergies Allergies/Adverse Reactions: Allergies Allergy/AdvReac Type Severity Reaction Status Date / Time Cephalosporins Allergy Unknown Verified 09/11/20 11:35 latex Allergy Unknown Verified 09/11/20 11:35 nitrofurantoin Allergy Unknown Verified 09/11/20 11:35 [From Macrobid] Penicillins Allergy Unknown Verified 09/11/20 11:35 Sulfa (Sulfonamide Allergy Unknown Verified 09/11/20 11:35 Antibiotics) sulfamethoxazole Allergy Unknown Verified 09/11/20 11:35 [From Septra] trimethoprim [From Septra] Allergy Unknown Verified 09/11/20 11:35 - Social History Does the pt smoke?: No Smoking Status: Never smoker Does the pt drink ETOH?: Yes Does the pt have substance abuse?: No - Immunizations Immunizations are current?: Yes - POLST Patient has POLST: No PD ED PE NORMAL - Vitals Vital signs reviewed: Yes - General General: Alert and oriented X 3, No acute distress, Well developed/nourished - HEENT HEENT: Atraumatic, PERRL, EOMI - Neck Neck: Supple, no meningeal sign - Cardiac Cardiac: RRR - Respiratory Respiratory: No respiratory distress, Clear bilaterally - Abdomen Abdomen: Non tender, Non distended - Back Back: No CVA TTP - Derm Derm: Normal color - Extremities Extremities: No deformity - Neuro Neuro: Alert and oriented X 3 - Psych Psych: Normal mood, Normal affect Results - Vitals Vitals: Vital Signs - 24 hr 09/14/20 09/14/20 09/14/20 21:04 21:12 21:50 Temperature 36.5 C Heart Rate 98 100 96 Respiratory 16 20 17 Rate Blood Pressure 148/79 H 150/92 H 140/84 H O2 Saturation 98 98 99 Oxygen O2 Source Room air PD MEDICAL DECISION MAKING - ED course ED course: 75-year-old woman with past medical history of NM with recent stent placement at [facility] a few days ago presents with sudden onset chest pain about an hour prior to arrival when she went to her pharmacy and found that they could not fill her nitro prescription. She states that she became upset and agitated and had sudden onset chest pain at that time that resolved upon arrival to the emergency department when she received a nitro tablet sublingual. Patient denies shortness of breath, fever chills cough nausea diaphoresis or other symptoms. 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 It was explained that in the post cardiac stent., Multiple causes of morbidity and mortality can occur and it is very important to do a full work-up. The patient has capacity to refuse and therefore we signed her out AGAINST MEDICAL ADVICE after obtaining a second EKG without any acute changes. Departure - Departure Disposition: Against Medical Advice Clinical Impression: Chest pain Condition: Stable Discharge Date/Time: 09/14/20 22:09
== END 2020-09-14 22:09 | disposition left against medical advice (07) ==
LOC: ED 21:02
DX: R07.9 Chest pain, unspecified (principal); I10 Essential (primary) hypertension; I25.2 Old myocardial infarction; Z95.5 Presence of coronary angioplasty implant and graft; Z53.29 Procedure and treatment not carried out because of patient's decision for other reasons
CPT/HCPCS: 93005; 99283; 99284; A9270; 80053; 83690; 84484; 85025

== ENCOUNTER 2021-01-17 09:18 | Outpatient (CLI) | payer MEDICARE ==
[2021-01-17 14:46] LABS: BASOPHILS # (AUTO) 0.1 10^3/uL (0.0-0.1); BASOPHILS % (AUTO) 1.4 %; EOSINOPHILS # (AUTO) 0.2 10^3/uL (0.0-0.7); EOSINOPHILS % (AUTO) 3.6 %; HGB - HEMOGLOBIN 13.1 g/dL (12.0-16.0); LYMPHOCYTES # (AUTO) 1.6 10^3/uL (1.5-3.5); LYMPHOCYTES % (AUTO) 24.8 %; MEAN CORPUSCULAR HEMOGLOBIN 28.5 pg (27.0-31.0); MEAN CORPUSCULAR HGB CONC 31.2 g/dL (32.0-36.0); MEAN CORPUSCULAR VOLUME 91.5 fL (81.0-99.0); MEAN PLATELET VOLUME 10.7 fL (7.9-10.8); MONOCYTES # (AUTO) 0.5 10^3/uL (0.0-1.0); MONOCYTES % (AUTO) 7.9 %; NEUTROPHILS % (AUTO) 61.8 %; PLT - PLATELET COUNT 240 10^3/uL (130-450); RED BLOOD COUNT 4.59 10^6/uL (4.20-5.40); WHITE BLOOD COUNT 6.4 x10^3/uL (4.8-10.8)
[2021-01-17 15:22] LABS: ALBUMIN/GLOBULIN RATIO 1.5 (1.0-2.2); ALKALINE PHOSPHATASE 60 IU/L (42-121); ALT ALANINE AMINOTRANSFERASE 21 IU/L (10-60); AST ASPARTATE AMINOTRANSFERASE 17 IU/L (10-42); BILIRUBIN,TOTAL 0.8 mg/dL (0.2-1.0); BUN - BLOOD UREA NITROGEN 18 mg/dL (6-20); CALCIUM 9.2 mg/dL (8.5-10.3); CARBON DIOXIDE - CO2 29 mmol/L (21-32); CHLORIDE 105 mmol/L (101-111); CHOL/HDL RATIO 2.8 (<4.4); CHOLESTEROL 145 mg/dL; CREATININE 0.5 mg/dL (0.4-1.0); GFR - MDRD 121 (>89); GLUCOSE 108 mg/dL (70-100); HDL CHOLESTEROL 51 mg/dL; LDL CHOLESTEROL,CALCULATED 76 mg/dL; LDL/HDL RATIO 1.5 (<4.4); SODIUM 140 mmol/L (135-145); TOTAL PROTEIN 6.7 g/dL (6.7-8.2); TRIGLYCERIDES 89 mg/dL; VLDL CHOLESTEROL 18 mg/dL
[2021-01-17 15:29] LABS: THYROID STIMULATING HORMONE 2.36 uIU/mL (0.34-5.60)
== END 2021-01-17 09:19 | disposition home or self-care (01) ==
LOC: LAB.S 09:18
PROVIDERS: ATTEND Registered Nurse
DX: I10 Essential (primary) hypertension (principal); E78.5 Hyperlipidemia, unspecified; I21.4 Non-ST elevation (NSTEMI) myocardial infarction; R42 Dizziness and giddiness
CPT/HCPCS: 36415; 80053; 80061; 83721; 84443; 85025

== ENCOUNTER 2021-04-09 20:40 | Outpatient (CLI) | payer MEDICARE | END 2021-04-09 20:41 | disposition critical access hospital (66) | LOC: EMS 20:40 | DX: R42 Dizziness and giddiness (principal) | CPT/HCPCS: A0425; A0429 ==

== ENCOUNTER 2021-04-09 21:01 | Emergency (ER) | payer MEDICARE ==
[2021-04-09 21:16] LABS: BILIRUBIN,URINE NEGATIVE (NEGATIVE); GLUCOSE, URINE (UA) NEGATIVE (NEGATIVE); KETONES,URINE (UA) NEGATIVE (NEGATIVE); LEUKOCYTE ESTERASE, URINE TRACE (NEGATIVE); NITRITE,URINE NEGATIVE (NEGATIVE); OCCULT BLOOD,URINE NEGATIVE (NEGATIVE); PROTEIN,URINE NEGATIVE (NEGATIVE); UROBILINOGEN,URINE 0.2 (NORMAL) E.U./dL (NORMAL)
[2021-04-09 21:18] LABS: CLARITY,URINE CLEAR (CLEAR)
--- NOTE | 2021-04-09 21:23 | ED Physician Documentation ---
History of Present Illness - Stated complaint Stated Complaint: DIZZINESS - Chief complaint Chief Complaint: Neuro - History obtained from History obtained from: Patient - History of Present Illness Timing: Today Pain level now: 0 Improved by: rest Worsened by: movement - Additonal information Additional information: patient c/o sudden onset dizziness, described as sensation of spinning and swaying despite standing still. The onset was instantaneous as she was entering her house tonight, approximately 7 PM. This was associated with mild nausea but no vomiting. She had difficulty ambulating because of the dizziness, feeling as though she might fall. She denies weakness, headache, visual changes. The symptoms have gradually improved and on this H+P she has minimal residual dizziness. she does not recall if turning her head made any difference in symptoms. She says she had one similar episode in the past many years ago which was thought to be due to high blood pressure. Patient had AR 6 months ago with stents placed. Yesterday she was started on Coreg but one hour after taking her first dose, she developed chest discomfort and dyspnea and thus was instructed by her doctor to stop the Coreg and resume her previous antihypertensive regimen Review of Systems Eyes: reports: Reviewed and negative Ears: reports: Reviewed and negative Cardiac: reports: Reviewed and negative Respiratory: reports: Reviewed and negative GI: reports: Nausea (resolved). 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 - Present Medications Home Medications: Ambulatory Orders Medication Instructions Recorded Confirmed Albuterol Sulfate [Proair Hfa 2 puffs IH QID #1 hfa.aer.ad 05/22/16 04/09/21 Inhaler] Losartan [Cozaar] 1 tab PO DAILY 09/11/20 04/09/21 Atorvastatin [Lipitor] 20 mg PO DAILY 04/09/21 04/09/21 Clopidogrel [Plavix] mg PO DAILY 04/09/21 Meclizine [Antivert] 12.5 mg PO Q6H PRN #20 tablet 04/09/21 Metoprolol Tartrate [Lopressor] 25 mg PO BID 04/09/21 04/09/21 carvediloL [Coreg] 12.5 mg PO BID 04/09/21 04/09/21 - Allergies Allergies/Adverse Reactions: Allergies Allergy/AdvReac Type Severity Reaction Status Date / Time Cephalosporins Allergy Unknown Verified 04/09/21 21:06 latex Allergy Unknown Verified 04/09/21 21:06 nitrofurantoin Allergy Unknown Verified 04/09/21 21:06 [From Macrobid] Penicillins Allergy Unknown Verified 04/09/21 21:06 Sulfa (Sulfonamide Allergy Unknown Verified 04/09/21 21:06 Antibiotics) sulfamethoxazole Allergy Unknown Verified 04/09/21 21:06 [From Septra] trimethoprim [From ] Allergy Unknown Verified 04/09/21 21:06 - Social History Does the pt smoke?: No Smoking Status: Never smoker Does the pt drink ETOH?: Yes Does the pt have substance abuse?: No - Immunizations Immunizations are current?: Yes - POLST Patient has POLST: No PD ED PE NORMAL - Vitals Vital signs reviewed: Yes - General General: Alert and oriented X 3, No acute distress, Well developed/nourished - HEENT HEENT: PERRL, EOMI, Moist mucous membranes - Neck Neck: Supple, no meningeal sign - Cardiac Cardiac: RRR, No murmur - Respiratory Respiratory: No respiratory distress, Clear bilaterally - Neuro Neuro: Alert and oriented X 3, 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, No motor deficit, No sensory deficit, Normal speech Eye Opening: Spontaneous Motor: Obeys Commands Verbal: Oriented GCS Score: 15 Results - Vitals Vitals: Oxygen O2 Source Room air - EKG (time done) No standard instances Rate: Rate (enter#) (78) Rhythm: NSR [place]: Normal Intervals: Normal [place] QRS: Normal Ischemia: Normal ST segments - Labs Labs: Microbiology 04/09/21 21:05 Urine Culture - Final Urine,Clean Catch Viridans Streptococcus Group Laboratory Tests 04/09/21 04/09/21 04/09/21 21:05 21:53 21:53 WBC 6.4 RBC 4.71 Hgb 13.9 Hct 42.3 MCV 89.8 MCH 29.5 MCHC 32.9 RDW 12.3 Plt Count 243 MPV 10.2 Neut # (Auto) 4.0 Lymph # (Auto) 1.5 [place] # (Auto) 0.5 Eos # (Auto) 0.3 Baso # (Auto) 0.1 Absolute Nucleated RBC 0.00 Nucleated RBC % 0.0 Sodium 137 Potassium 3.8 Chloride 100 L Carbon Dioxide 28 Anion Gap 9.0 BUN 21 H Creatinine 0.6 Estimated GFR (MDRD) 98 Glucose 176 H Calcium 9.7 Total Bilirubin 0.6 AST 21 ALT 24 Alkaline Phosphatase 73 Troponin I High Sens Total Protein 7.3 Albumin 4.3 Globulin 3.0 Albumin/Globulin Ratio 1.4 Lipase 55 H Urine Color YELLOW Urine Clarity CLEAR Urine pH 6.0 Ur Specific [place] 1.020 Urine Protein NEGATIVE Urine Glucose (UA) NEGATIVE Urine Ketones NEGATIVE Urine Occult Blood NEGATIVE Urine Nitrite NEGATIVE Urine Bilirubin NEGATIVE Urine Urobilinogen 0.2 (NORMAL) Ur Leukocyte Esterase TRACE H Urine RBC None Seen Urine WBC 0-3 Ur Squamous Epith Cells FEW Squamous Urine Bacteria Rare Ur Microscopic Review INDICATED Urine Culture Comments INDICATED 04/09/21 21:53 WBC RBC Hgb Hct MCV MCH MCHC RDW Plt Count MPV Neut # (Auto) Lymph # (Auto) [place] # (Auto) Eos # (Auto) Baso # (Auto) Absolute Nucleated RBC Nucleated RBC % Sodium Potassium Chloride Carbon Dioxide Anion Gap BUN Creatinine Estimated GFR (MDRD) Glucose Calcium Total Bilirubin AST ALT Alkaline Phosphatase Troponin I High Sens 4.3 Total Protein Albumin Globulin Albumin/Globulin Ratio Lipase Urine Color Urine Clarity Urine pH Ur Specific [place] Urine Protein Urine Glucose (UA) Urine Ketones Urine Occult Blood Urine Nitrite Urine Bilirubin Urine Urobilinogen Ur Leukocyte Esterase Urine RBC Urine WBC Ur Squamous Epith Cells Urine Bacteria Ur Microscopic Review Urine Culture Comments PD MEDICAL DECISION MAKING - ED course Complexity details: reviewed results, re-evaluated patient, considered di fferential, d/w patient ED course: unremarkable test results including EKG, CBC, electrolytes, and troponin. Her description of symptoms tonight is c/w vertigo, and the symptoms have mostly resolved by the time of the initial H+P. She is given antivert for residual vertigo and clonidine for high blood pressure readings .she requested low doses of medications as she reacts strongly (per patient). Thus she is given 12.5 meclizine but given a second dose when first was ineffective. The second dose led to resolution of the vertigo and she eventually responded to the 0.1 mg clonidine with improved blood pressure to 150s SBP (a second dose, which was to be 0.2 mg, was ordered, as she continued to have 210s SBP and 110s-120 DBP readings, but shortly before this was given she had improved readings and thus the second dose of clonidine was held). Results reviewed with patient, instructed to follow up with PMD, particularly to at least discuss her HTN and whether further changes or additions will need to be made to her current antihypertensive medications Departure - Departure Disposition: Home, Self Care Clinical Impression: Uncontrolled hypertension, Vertigo Condition: Good Instructions: ED Hypertension Conf Out Of Control, ED Vertigo Unspecified Follow-Up: Leeanne Gleason ARNP [Primary Care Provider] - Prescriptions: Meclizine [Antivert] 12.5 mg PO Q6H PRN #20 tablet PRN Reason: Vertigo Comments: A prescription for meclizine (anti-vertigo medication ) has been electronically submitted to the [facility] in [place]. Contact your primary care provider in the morning to discuss options for better blood pressure control. Discharge Date/Time: 04/09/21 23:41
[2021-04-09 21:26] LABS: BACTERIA,URINE Rare /HPF (None Seen); RBC,URINE None Seen /HPF (0-5); SQUAMOUS EPITHELIAL CELL,UR FEW Squamous (<= Few); WBC,URINE 0-3 /HPF (0-5)
[2021-04-09] MEDS ORDERED: cloNIDine 0.1 MG TABLET PO STA ×2 (21:44→23:00)
[2021-04-09] MEDS ORDERED: MECLIZINE 12.5 MG TABLET PO STA ×2 (21:47→23:00)
[2021-04-09 21:58] LABS: BASOPHILS # (AUTO) 0.1 10^3/uL (0.0-0.1); BASOPHILS % (AUTO) 1.1 %; EOSINOPHILS # (AUTO) 0.3 10^3/uL (0.0-0.7); EOSINOPHILS % (AUTO) 3.9 %; HCT - HEMATOCRIT 42.3 % (37.0-47.0); HGB - HEMOGLOBIN 13.9 g/dL (12.0-16.0); LYMPHOCYTES # (AUTO) 1.5 10^3/uL (1.5-3.5); LYMPHOCYTES % (AUTO) 23.6 %; MEAN CORPUSCULAR HEMOGLOBIN 29.5 pg (27.0-31.0); MEAN CORPUSCULAR HGB CONC 32.9 g/dL (32.0-36.0); MEAN CORPUSCULAR VOLUME 89.8 fL (81.0-99.0); MEAN PLATELET VOLUME 10.2 fL (7.9-10.8); MONOCYTES # (AUTO) 0.5 10^3/uL (0.0-1.0); MONOCYTES % (AUTO) 8.5 %; NEUTROPHILS % (AUTO) 62.6 %; PLT - PLATELET COUNT 243 10^3/uL (130-450); RED BLOOD COUNT 4.71 10^6/uL (4.20-5.40); RED CELL DISTRIBUTION WIDTH 12.3 % (12.0-15.0); WHITE BLOOD COUNT 6.4 x10^3/uL (4.8-10.8)
[2021-04-09 22:14] LABS: ALBUMIN 4.3 g/dL (3.2-5.5); ALBUMIN/GLOBULIN RATIO 1.4 (1.0-2.2); BILIRUBIN,TOTAL 0.6 mg/dL (0.2-1.0); CALCIUM 9.7 mg/dL (8.5-10.3); CREATININE 0.6 mg/dL (0.4-1.0); POTASSIUM 3.8 mmol/L (3.5-5.0); TOTAL PROTEIN 7.3 g/dL (6.7-8.2)
[2021-04-09 23:43] VITALS: BP 138/80
== END 2021-04-09 23:41 | disposition home or self-care (01) ==
LOC: EDUNIT# → ED 21:01 → SUPCPDRO 21:01 → ED 23:41
DX: R42 Dizziness and giddiness (principal); I10 Essential (primary) hypertension; I25.2 Old myocardial infarction
CPT/HCPCS: 36415; 80053; 81001; 83690; 84484; 85025; 87086; 93005; 99284; A9270; 81003

== ENCOUNTER 2021-05-20 15:46 | Emergency (ER) | payer MEDICARE ==
[2021-05-20 16:18] LABS: BASOPHILS # (AUTO) 0.1 10^3/uL (0.0-0.1); BASOPHILS % (AUTO) 0.9 %; EOSINOPHILS # (AUTO) 0.2 10^3/uL (0.0-0.7); EOSINOPHILS % (AUTO) 2.9 %; HCT - HEMATOCRIT 42.5 % (37.0-47.0); HGB - HEMOGLOBIN 14.1 g/dL (12.0-16.0); LYMPHOCYTES # (AUTO) 1.6 10^3/uL (1.5-3.5); LYMPHOCYTES % (AUTO) 19.8 %; MEAN CORPUSCULAR HEMOGLOBIN 29.8 pg (27.0-31.0); MEAN CORPUSCULAR HGB CONC 33.2 g/dL (32.0-36.0); MEAN CORPUSCULAR VOLUME 89.9 fL (81.0-99.0); MEAN PLATELET VOLUME 10.5 fL (7.9-10.8); MONOCYTES # (AUTO) 0.5 10^3/uL (0.0-1.0); MONOCYTES % (AUTO) 6.7 %; NEUTROPHILS # (AUTO) 5.4 10^3/uL (1.5-6.6); NEUTROPHILS % (AUTO) 69.3 %; PLT - PLATELET COUNT 250 10^3/uL (130-450); RED BLOOD COUNT 4.73 10^6/uL (4.20-5.40); RED CELL DISTRIBUTION WIDTH 12.6 % (12.0-15.0); WHITE BLOOD COUNT 7.8 x10^3/uL (4.8-10.8)
--- NOTE | 2021-05-20 16:28 | XRAY Report ---
PROCEDURE: Chest 1 View X-Ray INDICATIONS: Chest pain TECHNIQUE: One view of the chest was acquired. COMPARISON: 09/11/2020, 08/24/2019 FINDINGS: Surgical changes and devices: None. Lungs and pleura: No pleural effusions or pneumothorax. Lungs are clear. Mediastinum: The aorta is prominent and tortuous. The cardiac contours are within normal limits. Bones and chest wall: No suspicious bony lesions. Overlying soft tissues appear unremarkable. IMPRESSION: No acute cardiopulmonary process is seen. Reviewed by: Edgar Green MD on 05/20/2021 3:26 PM [facility] Approved by: Edgar Green MD on 05/20/2021 3:26 PM [facility] Station ID: [id number]
[2021-05-20 16:32] LABS: ALBUMIN 4.2 g/dL (3.2-5.5); ALBUMIN/GLOBULIN RATIO 1.4 (1.0-2.2); BILIRUBIN,TOTAL 0.3 mg/dL (0.2-1.0); CALCIUM 9.4 mg/dL (8.5-10.3); CREATININE 0.6 mg/dL (0.4-1.0); POTASSIUM 3.9 mmol/L (3.5-5.0); TOTAL PROTEIN 7.2 g/dL (6.7-8.2)
[2021-05-20] MEDS ORDERED: SODIUM CHLORIDE 0.9% 1,000 ML IV STA (16:43)
--- NOTE | 2021-05-20 16:46 | ED Physician Documentation ---
History of Present Illness - Stated complaint Stated Complaint: DIZZINESS,WEAKNESS - Chief complaint Chief Complaint: Cardiac - History obtained from History obtained from: Patient - History of Present Illness Timing: Today - Additonal information Additional information: 75-year-old female who has had 2 stents placed in August of last year was doing well until about a month ago when she began to experience some symptoms of fatigue. She is periodically developing symptoms of lightheadedness and dizziness and today she had an episode of lightheadedness and dizziness with some substernal chest pain starting at about 2pm and lasting about 20 minutes. She did not get short of breath she did not have vomiting. She has come to the emergency department for evaluation and feels improved at the time of evaluation. She is noted to have high blood pressure states that she took her blood pressure earlier in the day it was 140/90. She states that she has been taking her medications. She does have a history of irritable bowel syndrome and has been having more symptoms than usual recently. She does get diarrhea associated with it she has some urinary frequency and she attributes this to bladder prolapse. She is getting up 5 times per night to urinate. Patient indicates that previously when she had her she noted episodic difficulty in breathing. She does not have that symptom with these symptoms today. Review of Systems Constitutional: denies: Fever Ears: denies: Ear pain Nose: denies: Congestion Throat: denies: Sore throat Cardiac: reports: Chest pain / pressure. denies: Palpitations, Pedal edema, Fish f pain Respiratory: denies: Dyspnea, Cough, Wheezing GI: reports: Diarrhea. denies: Abdominal Pain, Nausea, Vomiting : reports: Frequency. denies: Dysuria Skin: denies: Rash PD PAST MEDICAL HISTORY - Past Medical History Cardiovascular: Hypertension, High cholesterol, [place] Respiratory: Asthma, COPD Neuro: None Endocrine/Autoimmune: None GI: None PHYSICIAN GYNECOLOGIST: None : None HEENT: None Psych: None Musculoskeletal: None Derm: None - Past Surgical History Past Surgical History: Yes /PHYSICIAN GYNECOLOGIST: section, 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 - Present Medications Home Medications: Ambulatory Orders Medication Instructions Recorded Confirmed Albuterol Sulfate [Proair Hfa 2 puffs IH QID #1 hfa.aer.ad 05/22/16 04/09/21 Inhaler] Losartan [Cozaar] 1 tab PO DAILY 09/11/20 04/09/21 Atorvastatin [Lipitor] 20 mg PO DAILY 04/09/21 04/09/21 Clopidogrel [Plavix] mg PO DAILY 04/09/21 Meclizine [Antivert] 12.5 mg PO Q6H PRN #20 tablet 04/09/21 Metoprolol Tartrate [Lopressor] 25 mg PO BID 04/09/21 04/09/21 carvediloL [Coreg] 12.5 mg PO BID 04/09/21 04/09/21 - Allergies Allergies/Adverse Reactions: Allergies Allergy/AdvReac Type Severity Reaction Status Date / Time Cephalosporins Allergy Unknown Verified 05/20/21 16:02 iodine Allergy Unknown Verified 05/20/21 16:02 latex Allergy Unknown Verified 05/20/21 16:02 nitrofurantoin Allergy Unknown Verified 05/20/21 16:02 [From Macrobid] Penicillins Allergy Unknown Verified 05/20/21 16:02 Sulfa (Sulfonamide Allergy Unknown Verified 05/20/21 16:02 Antibiotics) sulfamethoxazole Allergy Unknown Verified 05/20/21 16:02 [From Septra] trimethoprim [From Janra] Allergy Unknown Verified 05/20/21 16:02 - Social History Does the pt smoke?: No Smoking Status: Never smoker Does the pt drink ETOH?: Yes Does the pt have substance abuse?: No - Immunizations Immunizations are current?: Yes - POLST Patient has POLST: No PD ED PE NORMAL - Vitals Vital signs reviewed: Yes (hypertension marked) - General General: Alert and oriented X 3, No acute distress, Well developed/nourished - HEENT HEENT: Atraumatic, PERRL, EOMI - Neck Neck: Supple, no meningeal sign, No bony TTP - Cardiac Cardiac: RRR, No murmur - Respiratory Respiratory: No respiratory distress, Clear bilaterally, Other (central chest pain reproduced by palpation ) - Abdomen Abdomen: Soft, Non tender - Back Back: No CVA TTP, No spinal TTP - Derm Derm: Normal color, Warm and dry, No rash - Extremities Extremities: No deformity, No edema - Neuro Neuro: Alert and oriented X 3, access services representative 2-12 intact, No motor deficit, No sensory deficit, Normal speech Eye Opening: Spontaneous Motor: Obeys Commands Verbal: Oriented GCS Score: 15 - Psych Psych: Normal mood, Normal affect Results - Vitals Vitals: Vital Signs - 24 hr 05/20/21 05/20/21 15:53 18:01 Temperature 36.6 C Heart Rate 93 93 Respiratory 16 12 Rate Blood Pressure 209/86 H 180/90 H O2 Saturation 98 99 Oxygen O2 Source Room air - EKG (time done) 1559 Rate: Rate (enter#) (91) Rhythm: NSR, LAE [place]: LAD Ischemia: Q waves, Non specific changes Compare to prior EKG: Changed from prior EKG (SPT 04/09/21 complex in aVF has changed with decreased forces. axis has changed. ) Computer interpretation: Agree with computer - Labs Labs: Laboratory Tests 05/20/21 05/20/21 05/20/21 16:12 16:12 16:12 WBC 7.8 RBC 4.73 Hgb 14.1 Hct 42.5 MCV 89.9 MCH 29.8 MCHC 33.2 RDW 12.6 Plt Count 250 MPV 10.5 Neut # (Auto) 5.4 Lymph # (Auto) 1.6 [place] # (Auto) 0.5 Eos # (Auto) 0.2 Baso # (Auto) 0.1 Absolute Nucleated RBC 0.00 Nucleated RBC % 0.0 Sodium 138 Potassium 3.9 Chloride 102 Carbon Dioxide 26 Anion Gap 10.0 BUN 22 H Creatinine 0.6 Estimated GFR (MDRD) 98 Glucose 178 H Calcium 9.4 Total Bilirubin 0.3 AST 19 ALT 20 Alkaline Phosphatase 67 Troponin I High Sens 26.9 H* Total Protein 7.2 Albumin 4.2 Globulin 3.0 Albumin/Globulin Ratio 1.4 Lipase 38 05/20/21 18:15 WBC RBC Hgb Hct MCV MCH MCHC RDW Plt Count MPV Neut # (Auto) Lymph # (Auto) [place] # (Auto) Eos # (Auto) Baso # (Auto) Absolute Nucleated RBC Nucleated RBC % Sodium Potassium Chloride Carbon Dioxide Anion Gap BUN Creatinine Estimated GFR (MDRD) Glucose Calcium Total Bilirubin AST ALT Alkaline Phosphatase Troponin I High Sens 28.8 H* Total Protein Albumin Globulin Albumin/Globulin Ratio Lipase - Rads (name of study) chest Radiology: Prelim report reviewed (Impression: No acute cardiopulmonary process is seen.), EMP read indepedently, See rad report Procedures - IVC sono (time) 1640 Bedside IVC sono: IVC measures (cm) (0.81), IVC collapsed c insp (cm) (complete), Dehydration (est 2+ liter deficit) PD MEDICAL DECISION MAKING - ED course Complexity details: reviewed old records, reviewed results, re-evaluated patient, considered differential, d/w patient Departure - Departure Disposition: 01 Home, Self Care Clinical Impression: Dehydration, Irritable bowel syndrome with alternating bowel habits Hypertension Qualifiers: Hypertension type: unspecified Qualified Code(s): I10 - Essential (primary) hypertension Condition: Stable Instructions: ED Dehydration, ED Hypertension Conf Out Of Control, ED IBS Follow-Up: Leeanne Gleason ARNP [Primary Care Provider] - Comments: Marcia today we found that you were dehydrated and your blood pressure was markedly elevated. Take your blood pressure medications on a regular basis and follow-up with your primary care doctor for further work on your blood pressure. For your irritable bowel that is the presumed cause of your dehydration the recommendation is to take some Imodium if you are having diarrhea. This is available [id number] and you can follow directions on the box.
[2021-05-20] MEDS ORDERED: METOPROLOL TARTRATE 50 MG TABLET PO STA (17:00)
[2021-05-20 18:07] VITALS: BP 180/90
[2021-05-20] MEDS ORDERED: carvediloL 12.5 MG TABLET PO STA (19:06)
== END 2021-05-20 19:22 | disposition home or self-care (01) ==
LOC: ED 15:46
DX: E86.0 Dehydration (principal); K58.2 Mixed irritable bowel syndrome; I10 Essential (primary) hypertension; R07.89 Other chest pain; I25.10 Atherosclerotic heart disease of native coronary artery without angina pectoris; Z95.5 Presence of coronary angioplasty implant and graft; Z79.02 Long term (current) use of antithrombotics/antiplatelets; R35.0 Frequency of micturition
CPT/HCPCS: 36415; 71045; 80053; 83690; 84484; 85025; 93005; 96360; 96361; 99284; A9270

== ENCOUNTER 2021-07-04 09:45 | Outpatient (CLI) | payer MEDICARE ==
[2021-07-04 16:00] LABS: ALBUMIN/GLOBULIN RATIO 1.3 (1.0-2.2); ALKALINE PHOSPHATASE 60 IU/L (42-121); ALT ALANINE AMINOTRANSFERASE 20 IU/L (10-60); AST ASPARTATE AMINOTRANSFERASE 18 IU/L (10-42); BILIRUBIN,TOTAL 0.6 mg/dL (0.2-1.0); BUN - BLOOD UREA NITROGEN 17 mg/dL (6-20); CALCIUM 9.4 mg/dL (8.5-10.3); CARBON DIOXIDE - CO2 29 mmol/L (21-32); CHLORIDE 99 mmol/L (101-111); CHOLESTEROL 194 mg/dL; CREATININE 0.5 mg/dL (0.4-1.0); GFR - MDRD 121 (>89); GLUCOSE 107 mg/dL (70-100); HDL CHOLESTEROL 49 mg/dL; LDL CHOLESTEROL,CALCULATED 118 mg/dL; LDL/HDL RATIO 2.4 (<4.4); POTASSIUM 3.8 mmol/L (3.5-5.0); SODIUM 137 mmol/L (135-145); TRIGLYCERIDES 137 mg/dL; VLDL CHOLESTEROL 27 mg/dL
== END 2021-07-04 09:46 | disposition home or self-care (01) ==
LOC: LAB.S 09:45
PROVIDERS: ATTEND Registered Nurse
DX: I51.7 Cardiomegaly (principal); R09.89 Other specified symptoms and signs involving the circulatory and respiratory systems; I20.0 Unstable angina; I21.4 Non-ST elevation (NSTEMI) myocardial infarction
CPT/HCPCS: 36415; 80053; 80061; 83721

== ENCOUNTER 2022-02-04 10:17 | Outpatient (CLI) | payer MEDICARE | END 2022-02-04 10:18 | disposition home or self-care (01) | LOC: LAB.S 10:17 | PROVIDERS: ATTEND Nurse Practitioner | DX: Z53.9 Procedure and treatment not carried out, unspecified reason (principal) | CPT/HCPCS: 36415; 80053; 80061; 83721 ==

== ENCOUNTER 2022-02-07 11:06 | Outpatient (CLI) | payer MEDICARE ==
[2022-02-07 14:48] LABS: ALBUMIN 4.3 g/dL (3.2-5.5); ALBUMIN/GLOBULIN RATIO 1.6 (1.0-2.2); ALKALINE PHOSPHATASE 52 IU/L (42-121); ALT ALANINE AMINOTRANSFERASE 18 IU/L (10-60); AST ASPARTATE AMINOTRANSFERASE 18 IU/L (10-42); BILIRUBIN,TOTAL 0.9 mg/dL (0.2-1.0); BUN - BLOOD UREA NITROGEN 14 mg/dL (6-20); CALCIUM 9.9 mg/dL (8.5-10.3); CARBON DIOXIDE - CO2 28 mmol/L (21-32); CHLORIDE 104 mmol/L (101-111); CHOLESTEROL 170 mg/dL; CREATININE 0.5 mg/dL (0.4-1.0); GFR - MDRD 120 (>89); GLUCOSE 100 mg/dL (70-100); HDL CHOLESTEROL 43 mg/dL; LDL CHOLESTEROL,CALCULATED 99 mg/dL; LDL CHOLESTEROL,DIRECT 108 mg/dL; LDL/HDL RATIO 2.3 (<4.4); POTASSIUM 4.2 mmol/L (3.5-5.0); SODIUM 140 mmol/L (135-145); TRIGLYCERIDES 141 mg/dL; VLDL CHOLESTEROL 28 mg/dL
== END 2022-02-07 11:07 | disposition home or self-care (01) ==
LOC: LAB.S 11:06
PROVIDERS: ATTEND Nurse Practitioner
DX: I21.4 Non-ST elevation (NSTEMI) myocardial infarction (principal); R07.9 Chest pain, unspecified
CPT/HCPCS: 36415; 80053; 80061; 83721

== ENCOUNTER 2022-06-08 11:58 | Emergency (ER) | payer MEDICARE ==
[2022-06-08] MEDS ORDERED: IPRATROPIUM/ALBUTEROL 3 ML NEB INH STA (12:55)
--- NOTE | 2022-06-08 12:57 | ED Physician Documentation ---
History of Present Illness - Stated complaint Stated Complaint: HARD COUGH/SOA - Chief complaint Chief Complaint: Resp - Additonal information Additional information: 76-year-old female presents emergency department for evaluation of cough that began about 2 weeks ago. She states that she felt like she initially had the flu. There was lots of body aches fevers and fatigue. Most of that has abated however her cough has persisted. Often bringing up green phlegm. States she had a fever of 101 two nights ago. She is concerned that she could have pneumonia or bronchitis. She did test negative for COVID yesterday. Review of Systems Constitutional: reports: Fever, Fatigue Respiratory: reports: Cough. denies: Dyspnea GI: denies: Abdominal Pain : reports: Reviewed and negative Skin: reports: Reviewed and negative Musculoskeletal: reports: Reviewed and negative PD PAST MEDICAL HISTORY - Past Medical History Cardiovascular: Hypertension, High cholesterol, [place] Respiratory: Asthma, COPD Neuro: None Endocrine/Autoimmune: None GI: None MEMBER OF THE LEGISLATIVE ASSEMBLY: None : None HEENT: None Psych: None Musculoskeletal: None Derm: None - Past Surgical History Past Surgical History: Yes /MEMBER OF THE LEGISLATIVE ASSEMBLY: section, 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 - Present Medications Home Medications: Ambulatory Orders Medication Instructions Recorded Confirmed Losartan [Cozaar] 100 mg PO DAILY 09/11/20 06/08/22 Atorvastatin [Lipitor] 20 mg PO DAILY 04/09/21 06/08/22 Metoprolol Tartrate [Lopressor] 25 mg PO BID 04/09/21 06/08/22 Albuterol Sulf [Ventolin Hfa 1 - 2 puffs INH Q4HR PRN #1 each 06/08/22 Inhaler] Aspirin [[place] Aspirin] 81 mg PO DAILY 06/08/22 06/08/22 Azithromycin [Zithromax] 0 mg PO DAILY #6 tablet 06/08/22 Benzonatate [Tessalon] 200 mg PO TID PRN #20 cap 06/08/22 - Allergies Allergies/Adverse Reactions: Allergies Allergy/AdvReac Type Severity Reaction Status Date / Time Cephalosporins Allergy Unknown Verified 06/08/22 12:06 iodine Allergy Unknown Verified 06/08/22 12:06 latex Allergy Unknown Verified 06/08/22 12:06 nitrofurantoin Allergy Unknown Verified 06/08/22 12:06 [From Macrobid] Penicillins Allergy Unknown Verified 06/08/22 12:06 Sulfa (Sulfonamide Allergy Unknown Verified 06/08/22 12:06 Antibiotics) sulfamethoxazole Allergy Unknown Verified 06/08/22 12:06 [From ] trimethoprim [From ] Allergy Unknown Verified 06/08/22 12:06 - Social History Does the pt smoke?: No Smoking Status: Never smoker Does the pt drink ETOH?: Yes Does the pt have substance abuse?: No - Immunizations Immunizations are current?: Yes - POLST Patient has POLST: No PD ED PE NORMAL - General General: Alert and oriented X 3, No acute distress - HEENT HEENT: Atraumatic, Moist mucous membranes, Pharynx benign, Other (Rhinorrhea nasal congestion) - Neck Neck: Supple, no meningeal sign, No adenopathy - Cardiac Cardiac: RRR, No murmur - Respiratory Respiratory: No respiratory distress. No: Clear bilaterally (Diffuse expiratory wheeze. No rhonchi or crackles) - Abdomen Abdomen: Normal bowel sounds, Soft - Derm Derm: Normal color, Warm and dry, No rash - Extremities Extremities: No deformity, No tenderness to palpate, Normal ROM s pain Results - Vitals Vitals: Vital Signs - 24 hr 06/08/22 06/08/22 12:01 13:13 Temperature 36.7 C Heart Rate 101 H 100 Respiratory 24 20 Rate Blood Pressure 210/98 H O2 Saturation 97 Oxygen O2 Source Room air - Rads (name of study) cxr Radiology: EMP read indepedently (No acute cardiopulmonary process) PD Medical Decision Making - ED course Complexity details: reviewed results, re-evaluated patient, considered differential, d/w patient ED course: 76-year-old female presents emergency department for evaluation of 2 weeks unabated cough. It initially started with what she described as flulike symptoms. Most the symptoms resolved However the cough has continued. She reports a new fever 2 days ago up to 101. She had no nausea or vomiting. She did test negative for COVID yesterday. On exam she has no hypoxia. However cardiopulmonary auscultation revealed diffuse expiratory wheezes. She was administered a DuoNeb here in the emergency department with full resolution of all of the wheeze and she felt that her symptoms were markedly better. My interpretation of the x-ray as well as that of the radiologist is that there was no acute findings to suggest a focal pneumonia. However given that the cough is gone unabated for 2 weeks, she had new fever 2 days ago I will treat for bronchitis with a prescription for azithromycin. Ross mcclure resolved with a DuoNeb and she will also be sent with a prescription for albuterol. We did discuss the usual emergent return precautions Departure - Departure Disposition: 01 Home, Self Care Clinical Impression: Bronchitis Condition: Stable Record reviewed to determine appropriate education?: Yes Instructions: ED Upper Resp Infec Abx Tx Prescriptions: Albuterol Sulf [Ventolin Hfa Inhaler] 1 - 2 puffs INH Q4HR PRN #1 each PRN Reason: Shortness Of Air/Wheezing Benzonatate [Tessalon] 200 mg PO TID PRN #20 cap PRN Reason: Cough Azithromycin [Zithromax] 0 mg PO DAILY #6 tablet Comments: Marcia you are seen today in the emergency department because you have had a cough for over 2 weeks. Your chest x-ray does not show pneumonia but because the cough has not gotten better and you did have a temperature the other day I think it would be good practice to start you on a short course of antibiotics. I sent a prescription called azithromycin to the pharmacy. I would like you to use the albuterol 2-3 times a day to help with cough and wheeze. I have also prescribed Tessalon Perles as a cough suppressant. You may also find relief of some of your symptoms by taking an [id number] allergy medication such as Benadryl or Claritin to help with nasal congestion and postnasal drip Please discuss this ED visit with your primary care provider. If you find that your symptoms or not improving, significantly worse, you develop severe chest pain or shortness of air you should return immediately to the ER.
--- NOTE | 2022-06-08 13:08 | XRAY Report ---
PROCEDURE: Chest 1 View X-Ray INDICATIONS: CHEST PAIN TECHNIQUE: One view of the chest was acquired. COMPARISON: None. FINDINGS: Surgical changes and devices: None. Lungs and pleura: No pleural effusions or pneumothorax. Lungs are clear. Mediastinum: Mediastinal contours appear normal. Heart size is normal. Bones and chest wall: No suspicious bony lesions. Overlying soft tissues appear unremarkable. IMPRESSION: No acute cardiopulmonary disease. Reviewed by: Giana Thomas MD on 06/08/2022 12:07 PM [facility] Approved by: Giana Thmoas MD on 06/08/2022 12:07 PM [facility] Station ID: [id number]
[2022-06-08 13:30] VITALS: BP 177/99
== END 2022-06-08 13:37 | disposition home or self-care (01) ==
LOC: ED 11:58
DX: J40 Bronchitis, not specified as acute or chronic (principal); I10 Essential (primary) hypertension
CPT/HCPCS: 94640; 99283; 99284

== ENCOUNTER 2022-11-12 19:44 | Emergency (ER) | payer MEDICARE ==
[2022-11-12 19:55] VITALS: BP 200/100
--- NOTE | 2022-11-12 20:18 | ED Physician Documentation ---
PD HPI SKIN - Stated complaint Stated Complaint: POST OP BLEEDING - Chief complaint Chief Complaint: Wound - History obtained from History obtained from: Patient - Additional information Additional information: The patient comes to the emergency department chief complaint of bleeding from a left posterior shoulder incision site after a cyst removal in the surgical clinic today. She states it seemed to be fine right after the procedure but then began to lose a lot of blood at home. She could not get it to stop and felt a little lightheaded, which she was not sure whether that was from losing too much blood or just from feeling faint at the site of blood. The patient states the bleeding seems to stop now. She does take an aspirin a day but is not on any other anticoagulants. No other complaints at this time. PD PAST MEDICAL HISTORY - Past Medical History Cardiovascular: Hypertension, High cholesterol, [place] Respiratory: Asthma, COPD Neuro: None Endocrine/Autoimmune: None GI: None EVENT SPECIALIST PRODUCT DEMONSTRATOR: None : None HEENT: None Psych: None Musculoskeletal: None Derm: None - Past Surgical History Past Surgical History: Yes /EVENT SPECIALIST PRODUCT DEMONSTRATOR: section, 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 - Present Medications Home Medications: Ambulatory Orders Medication Instructions Recorded Confirmed Losartan [Cozaar] 100 mg PO DAILY 09/11/20 06/08/22 Atorvastatin [Lipitor] 20 mg PO DAILY 04/09/21 06/08/22 Metoprolol Tartrate [Lopressor] 25 mg PO BID 04/09/21 06/08/22 Albuterol Sulf [Ventolin Hfa 1 - 2 puffs INH Q4HR PRN #1 each 06/08/22 Inhaler] Aspirin [[place] Aspirin] 81 mg PO DAILY 06/08/22 06/08/22 Azithromycin [Zithromax] 0 mg PO DAILY #6 tablet 06/08/22 Benzonatate [Tessalon] 200 mg PO TID PRN #20 cap 06/08/22 - Allergies Allergies/Adverse Reactions: Allergies Allergy/AdvReac Type Severity Reaction Status Date / Time Cephalosporins Allergy Unknown Verified 11/12/22 19:50 iodine Allergy Unknown Verified 11/12/22 19:50 latex Allergy Unknown Verified 11/12/22 19:50 nitrofurantoin Allergy Unknown Verified 11/12/22 19:50 [From Macrobid] Penicillins Allergy Unknown Verified 11/12/22 19:50 Sulfa (Sulfonamide Allergy Unknown Verified 11/12/22 19:50 Antibiotics) sulfamethoxazole Allergy Unknown Verified 11/12/22 19:50 [From ] trimethoprim [From ] Allergy Unknown Verified 11/12/22 19:50 - Social History Does the pt smoke?: No Smoking Status: Never smoker Does the pt drink ETOH?: Yes Does the pt have substance abuse?: No - Immunizations Immunizations are current?: Yes - POLST Patient has POLST: No PD ED PE NORMAL - Vitals Vital signs reviewed: Yes - General General: Alert and oriented X 3, No acute distress - HEENT HEENT: PERRL - Respiratory Respiratory: No respiratory distress - Derm Derm: Normal color, Warm and dry, Other (Approximately 3 cm incision site on posterior left shoulder with gauze packing that is saturated with blood but not dripping or oozing. No erythema around the wound.) - Extremities Extremities: No deformity - Neuro Neuro: Alert and oriented X 3 - Psych Psych: Normal mood, Normal affect Results - Vitals Vitals: Oxygen O2 Source Room air PD Medical Decision Making - ED course Complexity details: considered differential, d/w patient ED course: The patient's bleeding was controlled at the time of my examination and I did not feel further intervention was needed. A new dressing was placed. I have discussed management of wound bleeding at home with the patient and have reassured her that this will stop on its own, given time. We discussed the usual indications for return. Departure - Departure Disposition: 01 Home, Self Care Clinical Impression: Post-op bleeding Qualifiers: Surgical complication system/body Area: subcutaneous tissue Procedure type: non-dermatologic Qualified Code(s): L76.22 - Postprocedural hemorrhage of skin and subcutaneous tissue following other procedure Condition: Stable Instructions: ED Wound Check Post Op Bleeding Comments: Your wound looks great and is not bleeding at this point in time. There is some clotted blood and the packing is soaked, but this is fairly normal after this kind of procedure. You may have some bleeding on and off for the next 24 hours but it should begin to solidify after that. You should continue with the surgeons plan for you to remove the packing tomorrow evening. Please follow-up with surgery clinic as scheduled. If you develop fevers or chills, or increasing pain, redness, or swelling spreading progressively away from the wound, then please get rechecked. Discharge Date/Time: 11/12/22 20:27
== END 2022-11-12 20:27 | disposition home or self-care (01) ==
LOC: ED 19:44
DX: L76.22 Postprocedural hemorrhage of skin and subcutaneous tissue following other procedure (principal); I10 Essential (primary) hypertension; E78.00 Pure hypercholesterolemia, unspecified; I25.2 Old myocardial infarction; J44.9 Chronic obstructive pulmonary disease, unspecified; Z79.899 Other long term (current) drug therapy; Z79.82 Long term (current) use of aspirin
CPT/HCPCS: 99281; 99282

== ENCOUNTER 2022-12-23 21:04 | Outpatient (CLI) | payer MEDICARE | END 2022-12-23 23:59 | disposition critical access hospital (66) | LOC: EMS 21:04 | DX: R42 Dizziness and giddiness (principal) | CPT/HCPCS: A0425; A0429 ==

== ENCOUNTER 2022-12-23 21:26 | Emergency (ER) | payer MEDICARE ==
[2022-12-23 21:52] LABS: BASOPHILS # (AUTO) 0.1 10^3/uL (0.0-0.1); BASOPHILS % (AUTO) 0.9 %; EOSINOPHILS # (AUTO) 0.2 10^3/uL (0.0-0.7); EOSINOPHILS % (AUTO) 3.3 %; HCT - HEMATOCRIT 39.9 % (37.0-47.0); HGB - HEMOGLOBIN 12.8 g/dL (12.0-16.0); LYMPHOCYTES # (AUTO) 1.7 10^3/uL (1.5-3.5); LYMPHOCYTES % (AUTO) 26.1 %; MEAN CORPUSCULAR HEMOGLOBIN 28.9 pg (27.0-31.0); MEAN CORPUSCULAR HGB CONC 32.1 g/dL (32.0-36.0); MEAN CORPUSCULAR VOLUME 90.1 fL (81.0-99.0); MEAN PLATELET VOLUME 10.4 fL (7.9-10.8); MONOCYTES # (AUTO) 0.6 10^3/uL (0.0-1.0); MONOCYTES % (AUTO) 8.7 %; NEUTROPHILS # (AUTO) 3.8 10^3/uL (1.5-6.6); NEUTROPHILS % (AUTO) 60.7 %; PLT - PLATELET COUNT 223 10^3/uL (130-450); RED BLOOD COUNT 4.43 10^6/uL (4.20-5.40); RED CELL DISTRIBUTION WIDTH 12.5 % (12.0-15.0); WHITE BLOOD COUNT 6.3 x10^3/uL (4.8-10.8)
[2022-12-23 22:05] LABS: ALBUMIN 4.2 g/dL (3.2-5.5); ALBUMIN/GLOBULIN RATIO 1.7 (1.0-2.2); ALKALINE PHOSPHATASE 69 IU/L (42-121); ALT ALANINE AMINOTRANSFERASE 17 IU/L (10-60); AST ASPARTATE AMINOTRANSFERASE 15 IU/L (10-42); BILIRUBIN,TOTAL 0.3 mg/dL (0.2-1.0); BUN - BLOOD UREA NITROGEN 19 mg/dL (6-20); CALCIUM 9.8 mg/dL (8.5-10.3); CARBON DIOXIDE - CO2 30 mmol/L (21-32); CHLORIDE 103 mmol/L (101-111); CREATININE 0.6 mg/dL (0.6-1.3); GFR - MDRD 97 (>89); GLUCOSE 118 mg/dL (74-104); LIPASE 20 U/L (11-82); POTASSIUM 3.8 mmol/L (3.5-4.5); SODIUM 137 mmol/L (135-145); TOTAL PROTEIN 6.7 g/dL (6.4-8.9)
[2022-12-23] MEDS: DROPERIDOL 5 MG/2 ML VIAL IVP STA (22:07)
[2022-12-23 22:11] LABS: TROPONIN I HIGH SENSITIVITY < 2.3 ng/L (2.3-14.8)
--- NOTE | 2022-12-23 22:12 | ED Physician Documentation ---
History of Present Illness - Stated complaint Stated Complaint: DIZZINESS - Chief complaint Chief Complaint: General - History obtained from History obtained from: Patient - History of Present Illness Timing: Today Pain level max: 0 Pain level now: 0 - Additonal information Additional information: 77-year-old female states that about 3 hours prior to arrival she had the sudden onset of dizziness like the room was spinning. Nausea and vomiting. This is happened several times in the past and she has been told that she has vertigo. No other focal neurological deficits. No numbness or weakness. Worse with movement, worse with standing or changing positions. Better with lying still and closing her eyes. No fevers. No chills. No trauma. No headache. Review of Systems Constitutional: denies: Fever, Chills Respiratory: denies: Cough GI: denies: Abdominal Pain, Diarrhea Skin: denies: Rash Musculoskeletal: denies: Neck pain, Back pain Neurologic: denies: Focal weakness, Numbness, Headache PD PAST MEDICAL HISTORY - Past Medical History Cardiovascular: Hypertension, High cholesterol, LA Respiratory: Asthma, COPD Neuro: None Endocrine/Autoimmune: None GI: None DEV MANAGER: None : None HEENT: None Psych: None Musculoskeletal: None Derm: None - Past Surgical History Past Surgical History: Yes /DEV MANAGER: section, 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 - Present Medications Home Medications: Ambulatory Orders Medication Instructions Recorded Confirmed Losartan [Cozaar] 100 mg PO DAILY 09/11/20 06/08/22 Atorvastatin [Lipitor] 20 mg PO DAILY 04/09/21 06/08/22 Metoprolol Tartrate [Lopressor] 25 mg PO BID 04/09/21 06/08/22 Albuterol Sulf [Ventolin Hfa 1 - 2 puffs INH Q4HR PRN #1 each 06/08/22 Inhaler] Aspirin [Karnes Aspirin] 81 mg PO DAILY 06/08/22 06/08/22 Azithromycin [Zithromax] 0 mg PO DAILY #6 tablet 06/08/22 Benzonatate [Tessalon] 200 mg PO TID PRN #20 cap 06/08/22 Meclizine HCl [Motion Sickness] 25 mg PO Q6H PRN #30 tablet 12/23/22 Ondansetron Odt [Zofran] 4 mg TL Q6H PRN #10 tablet 12/23/22 - Allergies Allergies/Adverse Reactions: Allergies Allergy/AdvReac Type Severity Reaction Status Date / Time Cephalosporins Allergy Unknown Verified 11/12/22 19:50 iodine Allergy Unknown Verified 11/12/22 19:50 latex Allergy Unknown Verified 11/12/22 19:50 nitrofurantoin Allergy Unknown Verified 11/12/22 19:50 [From Macrobid] Penicillins Allergy Unknown Verified 11/12/22 19:50 Sulfa (Sulfonamide Allergy Unknown Verified 11/12/22 19:50 Antibiotics) sulfamethoxazole Allergy Unknown Verified 11/12/22 19:50 [From Janra] trimethoprim [From ] Allergy Unknown Verified 11/12/22 19:50 - Social History Does the pt smoke?: No Smoking Status: Never smoker Does the pt drink ETOH?: Yes Does the pt have substance abuse?: No - Immunizations Immunizations are current?: Yes - POLST Patient has POLST: No PD ED PE NORMAL - Vitals Vital signs reviewed: Yes - General General: Alert and oriented X 3, No acute distress, Well developed/nourished - HEENT HEENT: PERRL, Ears normal, Moist mucous membranes, Pharynx benign - Neck Neck: Supple, no meningeal sign - Cardiac Cardiac: RRR, Strong equal pulses - Respiratory Respiratory: No respiratory distress, Clear bilaterally - Abdomen Abdomen: Soft, Non tender, Non distended - Back Back: No spinal TTP - Derm Derm: Warm and dry, No rash - Extremities Extremities: No edema, No calf tenderness / cord - Neuro Neuro: Alert and oriented X 3, 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 Relevant findings are: Rate: Rate (enter#) (78) Rhythm: NSR [place]: Normal Intervals: Normal [place] QRS: Normal Ischemia: Normal ST segments, Q waves (III) - Labs Labs: Laboratory Tests 12/23/22 12/23/22 21:45 21:45 WBC 6.3 RBC 4.43 Hgb 12.8 Hct 39.9 MCV 90.1 MCH 28.9 MCHC 32.1 RDW 12.5 Plt Count 223 MPV 10.4 Neut # (Auto) 3.8 Lymph # (Auto) 1.7 [place] # (Auto) 0.6 Eos # (Auto) 0.2 Baso # (Auto) 0.1 Absolute Nucleated RBC 0.00 Nucleated RBC % 0.0 Sodium 137 Potassium 3.8 Chloride 103 Carbon Dioxide 30 Anion Gap 4.0 L BUN 19 Creatinine 0.6 Estimated GFR (MDRD) 97 Glucose 118 H Calcium 9.8 Total Bilirubin 0.3 AST 15 ALT 17 Alkaline Phosphatase 69 Troponin I High Sens < 2.3 L Total Protein 6.7 Albumin 4.2 Globulin 2.5 Albumin/Globulin Ratio 1.7 Lipase 20 PD Medical Decision Making - ED course Complexity details: reviewed results, re-evaluated patient, considered differential, d/w patient, d/w family ED course: Patient with what appears to be BPPV. Normal cerebellar test. Normal gait. Symptoms resolved with droperidol. Ambulating without difficulty. No indication for emergent neuroimaging. No evidence of acute LA. No acute findings on EKG. No significant lab abnormalities. We will prescribe Zofran and meclizine for home and have her follow-up with her doctor for further care. Patient counseled regarding signs and symptoms for which I believe and urgent re-evaluation would be necessary. Patient with good understanding of and agreement to plan and is comfortable going home at this time This document was made in part using voice recognition software. While efforts are made to proofread this document, sound alike and grammatical errors may occur. Departure - Departure Disposition: Home, Self Care Clinical Impression: BPPV (benign paroxysmal positional vertigo) Qualifiers: Laterality: left Qualified Code(s): H81.12 - Benign paroxysmal vertigo, left ear Condition: Good Instructions: ED BPV Vertigo Follow-Up: your,doctor in 1 week [Other] Prescriptions: Meclizine HCl [Motion Sickness] 25 mg PO Q6H PRN #30 tablet PRN Reason: Dizziness Ondansetron Odt [Zofran] 4 mg TL Q6H PRN #10 tablet PRN Reason: Nausea / Vomiting Comments: Please follow-up with your doctor for further care. Your prescriptions were sent to [facility] in [place]. You can also try the Marcelo maneuver or half somersault maneuver at home, both of these are available for viewing on YouTube. Forms: PCP List
--- NOTE | 2022-12-23 23:13 | XRAY Report ---
PROCEDURE: Chest 1 View X-Ray INDICATIONS: Chest Pain TECHNIQUE: One view of the chest was acquired. COMPARISON: 06/08/2022. FINDINGS: Surgical changes and devices: None. Lungs and pleura: No pleural effusions or pneumothorax. Lungs are clear. Mediastinum: Mediastinal contours appear normal. Heart size is normal. Bones and chest wall: No suspicious bony lesions. Overlying soft tissues appear unremarkable. IMPRESSION: No acute cardiopulmonary disease. Reviewed by: Sotero Oliva MD on 12/23/2022 11:11 PM PDT Approved by: Sotero Oliva MD on 12/23/2022 11:11 PM PDT Station ID: [id number]
[2022-12-23 23:20] VITALS: BP 172/98; O2SAT 97
== END 2022-12-23 23:18 | disposition home or self-care (01) ==
LOC: ED 21:26
DX: H81.12 Benign paroxysmal vertigo, left ear (principal); I10 Essential (primary) hypertension; E78.00 Pure hypercholesterolemia, unspecified; I25.2 Old myocardial infarction; J44.9 Chronic obstructive pulmonary disease, unspecified; Z79.899 Other long term (current) drug therapy; Z79.82 Long term (current) use of aspirin
CPT/HCPCS: 36415; 80053; 83690; 84484; 85025; 93005; 96374; 99284